=== PATIENT | male | born 1945 | race Caucasian/White ===

== ENCOUNTER → 2017-10-04 | Outpatient (CLI) | payer OTHER ==
[~2017-10-04] MED LIST: CIPR-255 PO; IBUP-103 PO; LIDO1CRE16 TOP
== END | disposition home or self-care (01) ==
LOC: C.LABSPEC 17:25
PROVIDERS: ATTEND Urology
DX: N35.9 Urethral stricture, unspecified (principal); N40.1 Benign prostatic hyperplasia with lower urinary tract symptoms; N13.9 Obstructive and reflux uropathy, unspecified

== ENCOUNTER 2019-12-09 08:44 | Observation (INO) ==
--- NOTE | 2019-11-14 16:20 | PAT Medication Instructions ---
Medication Instructions Date of Service November 14, 2019 Home Medications Advair 1 dose INHALATION UD aspirin [Aspir-81] 81 mg PO DAILY atorvastatin 20 mg PO QDL ibuprofen [Advil] 200 mg PO UD PRN lisinopril 5 mg PO QDL tamsulosin 0.4 mg PO HS ASK your surgeon for instructions aspirin [Aspir-81] 81 mg PO DAILY ibuprofen [Advil] 200 mg PO UD PRN DO NOT take the morning of surgery lisinopril 5 mg PO QDL Take morning of surgery With a small sip of water, OTHERWISE NOTHING TO EAT OR DRINK AFTER MIDNIGHT: Advair 1 dose INHALATION UD atorvastatin 20 mg PO QDL Take evening before surgery tamsulosin 0.4 mg PO HS Other Notes If you have any questions please call us at [phone] or [phone] or [phone] or [phone]
--- NOTE | 2019-11-15 08:50 | Anesthesiology Consultation ---
Date of Service November 15, 2019 Assessment & Plan (1) Encounter for pre-operative examination: Chart Review Chart Review: Acceptable Risk for Surgery (pending pre op labs) and Patient seen in Pre Admission Testing Teaching & Discussion Instructed NPO after midnight before surgery, except medications with 15 cc of water. Medication instructions provided according to the PAT guidelines. History Surgery Operation Date: 12/09/19 07:15 Proposed Procedures p Transurethral Resection Prostate - Juan Jose Sims MD Height/Weight Height: 5 ft 11 in Weight: 74.6 kg Allergies Allergy/AdvReac Type Severity Reaction Status Date / Time No Known Allergies Allergy Mild Verified 11/08/19 13:32 Medications Home Medications Medication Instructions Recorded Confirmed Last Taken Advair 1 dose INHALATION UD 11/08/19 11/08/19 Unknown aspirin [Aspir-81] 81 mg PO DAILY 11/08/19 11/08/19 Unknown atorvastatin 20 mg PO QDL 11/08/19 11/08/19 Unknown ibuprofen [Advil] 200 mg PO UD PRN 11/08/19 11/08/19 Unknown lisinopril 5 mg PO QDL 11/08/19 11/08/19 Unknown tamsulosin 0.4 mg PO HS 11/08/19 11/08/19 Unknown Past Medical History Medical History Emphysema lung Does not use inhaler. Hyperlipidemia Hypertension Prostate enlargement SOB (shortness of breath) on exertion stable Urinary problem Exercise / Class Metabolic Activity II 4-5 Yardwork/Stairs/Walk up hill (DENIES CP OR SOB WITH 1 FOS OR YARDWORK) Past Family History Family History Brother Family history of diabetes mellitus Brother Family history of diabetes mellitus Brother Family history of diabetes mellitus Brother Family history of diabetes mellitus Brother Family history of diabetes mellitus Other Family history of colon cancer in mother Past Surgical History Surgical History History of colonoscopy History of urologic surgery Past Anesthesia History No Hx of Anesthesia Complications DAUGHTER - REDNESS AND ITCHY AFTER BREAST LUMPECTOMY - PT NOT SURE DETAILS, UNSURE IF R/T ANESTHESIA History of PONV No Hx of PONV and No Hx of Motion Sickness Social History Smoking Status: Current every day smoker tobacco type: cigarettes Smoking cigarettes per day: 1PPD/ADVISED NPO Do You Dip or Chew Tobacco: No Hx Alcohol Use: No Hx Substance Use: No substance use type: does not use Review of Systems Pt denies any recent chest pain, shortness of breath, palpitations, cough, fever or URI. Physical Exam Vital Signs BP: 113/69 P: 68bpm SPO2: 94% RA T: 97.8 F R: 20 ENMT Mouth: + edentulous Thyromental Distance: > or= 3.5 Finger Breadths (4) Mallampati Class: II Neck normal visual inspection; neck extension not limited Respiratory normal respiratory effort Auscultation: + rhonchi (soft insp and exp B/L -- pt denies symptoms, has emphysema) Cardiovascular Rate/Rhythm: regular rate and regular rhythm Heart Sounds: no murmur Vessels: no carotid bruit Extremities: no edema Testing Electrocardiogram Date: 10/17/19 Findings: + SB @ (54bpm) Otherwise normal EKG. Stress Test Date: 05/29/17 Type: DSE Resting EF: 60% DSE is negative for inducible ischemia. LV cavity size is normal. Mild concentric LVH. Grade I diastolic dysfunction. Other Testing Chest CT 08/26/19 Mild emphysema with scattered bilateral lung nodules measuring up to 5 mm.
[2019-11-15 11:10] LABS: Basophils # (auto) 0.03 K/uL (0-0.2); Basophils % (auto) 0.5 %; Eosinophils # (auto) 0.38 K/uL (0-0.5); Eosinophils % (auto) 6.8 %; Hematocrit (blood only) 44.3 % (42-52); Hemoglobin 15.3 g/dL (14.0-18.0); Immature Granulocytes # (auto) 0.02 K/uL (0.00-0.02); Immature Granulocytes % (auto) 0.4 %; Lymphocytes # (auto) 1.45 K/uL (1.2-3.4); Lymphocytes % (auto) 25.8 %; Mean Corpuscular Hemoglobin 29.7 pg (25-34); Mean Corpuscular Hgb Conc 34.5 g/dL (32-36); Mean Corpuscular Volume 85.9 fL (80-100); Mean Platelet Volume 10.6 fL (7.4-10.4); Monocytes # (auto) 0.62 K/uL (0.11-0.59); Neutrophils # (auto) 3.12 K/uL (1.4-6.5); Neutrophils % (auto) 55.5 %; Platelet Count 185 K/uL (130-400); RDW Coefficient of Variation 13.8 % (11.5-14.5); RDW Standard Deviation 43.1 fL (36.4-46.3); Red Blood Count 5.16 M/uL (4.7-6.1); White Blood Count 5.62 K/uL (4.8-10.8)
[2019-11-15 11:18] LABS: BUN Creatinine Ratio 17.4 (10-20); Calcium 8.9 mg/dl (8.5-10.1); Creatinine Clr Calc Pharmacy 69.4 ml/min; Est GFR (African American) 88.1; Est GFR (Non-African American) 76.1; Potassium 4.1 mmol/L (3.5-5.1)
[2019-11-16 11:20] LABS: Appearance Urine Clear (Clear); Bilirubin Urine Negative (Negative); Blood Urine Negative (Negative); Color Urine Yellow; Glucose Urine UA Negative (Negative); Ketones Urine Negative (Negative); Leukocyte Esterase Urine Negative (Negative); Nitrite Urine Negative (Negative); Protein Urine Negative (Negative); Specific Gravity Urine 1.015 (1.000-1.030); Urobilinogen Urine Negative (Negative)
[~2019-12-09 08:44] MED LIST changes: -CIPR-255 PO; +CIPROFLOXACIN 400 MG/200 ML BAG IV SCH; -IBUP-103 PO; -LIDO1CRE16 TOP; +LR 15ML/HR IV SCH
--- NOTE | 2019-12-09 10:50 | History & Physical Bridge Note ---
Date of Service December 09, 2019 History & Physical Bridge Note I have examined the patient, reviewed the History & Physical and in the interval since the performance of the History & Physical I have noted the following changes of clinical significance: no changes noted
[2019-12-09] MEDS ORDERED: LIDOCAINE HCL 2% 2 ML VIAL/AMP(20MG/ML) INFIL ONE (10:57)
[2019-12-09] MEDS ORDERED: PROPOFOL IV EMULSION 10 MG/ML 20 ML VIAL IV ONE (10:57)
[2019-12-09] MEDS ORDERED: ONDANSETRON INJ 2 MG/ML 2 ML VIAL ONE (10:57)
[2019-12-09] MEDS ORDERED: fentaNYL citrate 100 MCG/2 ML VIAL ONE (10:57)
[2019-12-09] MEDS ORDERED: ePHEDrine sulfate 50 MG/ML AMP IV PRN (11:06)
[2019-12-09] MEDS ORDERED: ONDANSETRON INJ 2 MG/ML 2 ML VIAL IV PRN (11:06)
[2019-12-09] MEDS ORDERED: ATROPINE SULFATE 0.1 MG/ML 10ML SYR IV PRN (11:06)
[2019-12-09] MEDS ORDERED: HYDROmorphone INJ 2 MG/ML SYR/VIAL IV PRN (11:06)
[2019-12-09] MEDS ORDERED: fentaNYL citrate 100 MCG/2 ML VIAL IV PRN (11:06)
--- NOTE | 2019-12-09 12:21 | Operative Report ---
PG Post Operative Report Pre & Post Diagnosis Operation Date: 12/09/19 10:45 Pre-Op Diagnosis: BENIGN PROSTATIC HYPERPLASIA, PROSTATIC OBSTRUCTION Post-Op Diagnosis: BENIGN PROSTATIC HYPERPLASIA, PROSTATIC OBSTRUCTION I identified the patient and participated in the time-out.: Yes Procedure Operation Date: 12/09/19 10:45 Actual Procedures p Meatal Dilitation; Transurethral Resection Prostate(Not Applicable) - Juan Jose Sims MD Surgeon Chris Sims MD Senior Director Creative Services none Estimated Blood Loss 5 Findings Consistent with Post-Op Diagnosis Specimens none Description of Procedure The patient was identified in the preopertive holding area, appropriate informed consents were reviewed and completed and the patient was transferred to the operative suite. Upon arrival, appropriate antibiotics and anesthesia were administered and the patient was placed in dorsal lithotomy position and prepped and draped in sterile fashion. To begin the case I was unable to pass a cystoscope per urethra secondary to a meatal stenosis. I subsequently performed a meatal dilation from 12 Wallisian to 30 Wallisian utilizing meatal sounds. I was then able to bypass the stenotic area with a 27 Wallisian resectoscope and visual obturator. Inspection revealed no other evidence of stricture disease. 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 Inspection of the prostate revealed lateral lobe hypertrophy and a moderately elevated bladder neck. Bladder was moderately trabeculated without any mucosal disease. Ureteral orifices were in orthotopic position. Following my inspection exchanged the visual obturator for resecting element using a button electrode. I began by incising the bladder neck at 5 and 7:00 and then resecting the intervening tissue. I subsequently resected the left and right lateral lobes before trimming the apical tissues. At the conclusion of the case there was an open prostatic urethra with excellent hemostasis. I left the bladder full and I withdrew the scope. I then placed a 22 Wallisian Elizondo catheter without difficulty. He was extubated and taken to the PACU in stable condition. There were no complications. I attest to the content of the Intraoperative Record and any orders documented therein. Any exceptions are noted below.
[2019-12-09] MEDS: NICOTINE 21 MG/24 HR TDSY TD SCH (12:26)
--- NOTE | 2019-12-09 13:14 | Anesthesiology Progress Note ---
Date of Service December 09, 2019 Anesthesia Post Procedure Vital Signs Vital Signs: Temp Pulse Pulse Resp BP BP Pulse Ox 12/09/19 13:00 36.8 C 45 L 17 131/72 96 12/09/19 12:50 36.8 C 48 L 18 142/80 H 96 12/09/19 12:40 52 L 16 126/74 95 12/09/19 12:30 55 L 18 135/70 95 12/09/19 12:20 36.8 C 53 L 17 112/64 95 12/09/19 12:10 51 L 17 123/66 96 12/09/19 12:00 51 L 13 123/70 100 12/09/19 11:50 36.7 C 48 L 12 116/62 99 12/09/19 09:24 36.5 C 55 L 18 134/78 98 Transfer of Care Handoff Completed per policy Notes Mental Status: alert / awake / arousable and participated in evaluation Patient Amnestic to Procedure: Yes Nausea / Vomiting: adequately controlled Pain: adequately controlled Airway Patency, RR, SpO2: stable & adequate BP & HR: stable & adequate Hydration State: stable & adequate Anesthetic Complications: no major complications apparent
[2019-12-09] MEDS ORDERED: HYDROCODONE/ACETAMOPHEN 5/325MG TAB PO PRN (13:29)
[2019-12-09] MEDS ORDERED: ACETAMINOPHEN 325 MG TAB PO PRN (13:29)
[2019-12-09] MEDS ORDERED: ADVAIR INH SCH (13:29)
[2019-12-09] MEDS: D5W AND 1/2NSS 1,000 ML IV SCH (13:54)
[2019-12-09] MEDS ORDERED: IBUPROFEN 200 MG TAB PO PRN (14:00)
[2019-12-09] MEDS: ATORVASTATIN 20 MG TAB PO SCH (14:27)
[2019-12-09] MEDS: lisinopriL 5 MG TAB PO SCH (14:27)
[2019-12-09] MEDS ORDERED: TAMSULOSIN HCL 0.4 MG CAP PO SCH (21:00)
[2019-12-09] MEDS: CIPROFLOXACIN 400 MG/200 ML BAG IV SCH (23:28)
[2019-12-09] MEDS ORDERED: COUGH DROP (SUGAR FREE) LOZ 24 LOZ/1 BOX BUCCAL ONE (23:31)
[2019-12-10] MEDS: D5W AND 1/2NSS 1,000 ML IV SCH ×2 (02:09→04:37)
--- NOTE | 2019-12-10 07:51 | Urology Progress Note ---
Date of Service December 10, 2019 Assessment & Plan (1) BPH loc w urin obs/LUTS: woodard out this am home after d/c Subjective no issues overnight urine clear ambulating no pain tolerating diet Physical Exam Physical Exam: urine clear Constitutional: well developed and well nourished Respiratory: no respiratory distress Cardiovascular: Extremities: no pedal edema Gastrointestinal (Abdomen): Inspection/Auscultation: abdomen normal to inspection Results & Data Vital Signs (Past 12 Hours) Vital Signs Temp Pulse Resp BP Pulse Ox 12/10/19 07:18 36.7 C 55 L 16 136/76 96 12/10/19 03:41 36.8 C 71 18 138/77 96 12/09/19 23:45 36.7 C 54 L 18 121/74 96 PG Care Time/CCT Total # of Minutes Spent Total Time Spent with Patient: Total time spent is greater than 50% in coordination of care (as documented) at patient's floor/unit and/or counseling patient: Coding Level of Care Code None Diagnoses BPH loc w urin obs/LUTS N40.1
--- NOTE | 2019-12-10 07:53 | Discharge Summary ---
Date of Service December 10, 2019 Admission HPI Per Admitting Provider admitted for voiding dysfunction Principal Diagnosis BPH Discharge Data Allergies Allergy/AdvReac Type Severity Reaction Status Date / Time No Known Allergies Allergy Mild Verified 12/09/19 09:14 Procedures Performed Operation Date: 12/09/19 10:45 Actual Procedures p Meatal Dilitation; Transurethral Resection Prostate(Not Applicable) - Juan Jose Sims MD Hospital Course (1) BPH loc w urin obs/LUTS: uneventful meatal dilation and TURP recovery without issue voided on POD #1 - d/c home Total Time Total Time Spent Total Time Spent (In Minutes): 15 Total Time Includes: Examination of the Patient and Discharge Planning Discharge Plan Discharge Items Patient Disposition: Home - Self-Care Reason For Visit: BENIGN PROSTATIC HYPERPLASIA, PROSTATIC OBSTRUCTIO Discharge Diagnosis: BPH Activity: Resume your previous activity Lifting: Gradually increase as tolerated Bathing: No limitations Sexual Activity: When tolerated Exercise/Sports: Gradually increase as tolerated Driving/Machine Use: No limitations Non-emergency contact: Urologist Call non-emergency contact if: you have any medication questions, your pain is concerning for you, you have a fever and your temperature is above 101.5 Follow-up/Referrals: Carmela Llanos DO [Primary Care Provider] - Diet: Regular Addtl Attending Provider Instructions: Please take all medications as prescribed and keep follow-ups as scheduled. Please call our office at [phone] with any questions, concerns or need to reschedule appointments for any reason. We are happy to assist you. While catheter is in place, please wash with warm soapy water and a fresh washcloth twice a day with mild bar soap (Dove, Dial, etc.). Your nursing visit appointment to have your catheter removed should already be made, if you have any question regarding this, please call our office. Complete antibiotics as prescribed, if indicated. It is okay to take AZO (available over the counter) as needed for a few days to relieve burning with urination. This may cause your urine or feces to turn an orangish-color. This is expected. The only exception is if you have been prescribed Pyridium (phenazopyridine), this is the same medication and should not take AZO be taken in addition to prescription version. Please do not drive, drink alcohol or operate machinery while taking prescription pain medication. We recommend continuing a stool softener (i.e. Colace) to prevent constipation/straining for at least two weeks after your procedure. Some blood is to be expected in your urine as you heal, you may even see recurrences of blood in your urine for up to 4-6 months after your procedure. Drink plenty of fluids, avoid sexual or strenuous exercise and do not lift >25 pounds until your follow-up. Call [facility] [place] [facility] at [phone] promptly if you experience: Fever of 101F or greater Pain thats not controlled with medicine Trouble urinating or inability to urinate Dark, bloody urine for more than 12 hours Pending Studies at Discharge: No Stand-Alone Forms: My [facility] Protalex, Smoking Cessation Medications and DC Order Prescriptions: Continued atorvastatin 20 mg Tablet 20 mg PO QDL RF: 0 tamsulosin 0.4 mg Capsule 0.4 mg PO HS RF: 0 lisinopril 5 mg Tablet 5 mg PO QDL RF: 0 aspirin [Aspir-81] 81 mg Tablet,Delayed Release (Dr/Ec) 81 mg PO DAILY RF: 0 ibuprofen [Advil] 200 mg Tablet 200 mg PO UD PRN (Reason: Pain) RF: 0 Advair 1 dose inhalation UD RF: 0 Discharge Orders: Discharge Order (Routine); Ordered 12/10/19 Ordered By: Juan Jose Sims Admission Data Admit Date/Time: 12/09/19 12:16 Attending Provider: Juan Jose Sims Admit Provider: Juan Jose Sims Primary Care Provider: Carmela Llanos Coding Level of Care Code D/C Day Management <30 mins Diagnoses BPH loc w urin obs/LUTS N40.1
--- NOTE | 2019-12-10 07:59 | Anesthesiology Progress Note ---
Date of Service December 10, 2019 Anesthesia Post Procedure Vital Signs Vital Signs: Temp Pulse Pulse Resp BP BP Pulse Ox 12/10/19 07:50 36.7 C 55 L 16 136/76 96 12/10/19 07:18 36.7 C 55 L 16 136/76 96 12/10/19 03:41 36.8 C 71 18 138/77 96 12/09/19 23:45 36.7 C 54 L 18 121/74 96 12/09/19 16:21 36.5 C 51 L 16 128/69 95 12/09/19 15:27 36.4 C L 52 L 16 143/73 H 96 12/09/19 14:15 36.4 C L 47 L 16 155/73 H 95 12/09/19 13:45 36.4 C L 51 L 18 145/82 H 96 12/09/19 13:15 36.4 C L 50 L 18 144/84 H 94 12/09/19 13:00 36.8 C 45 L 17 131/72 96 12/09/19 12:50 36.8 C 48 L 18 142/80 H 96 12/09/19 12:40 52 L 16 126/74 95 12/09/19 12:30 55 L 18 135/70 95 12/09/19 12:20 36.8 C 53 L 17 112/64 95 12/09/19 12:10 51 L 17 123/66 96 12/09/19 12:00 51 L 13 123/70 100 12/09/19 11:50 36.7 C 48 L 12 116/62 99 12/09/19 09:24 36.5 C 55 L 18 134/78 98 Pulse Ox 12/10/19 07:50 12/10/19 07:18 12/10/19 03:41 12/09/19 23:45 12/09/19 16:21 12/09/19 15:27 12/09/19 14:15 12/09/19 13:45 12/09/19 13:15 94 12/09/19 13:00 12/09/19 12:50 12/09/19 12:40 12/09/19 12:30 12/09/19 12:20 12/09/19 12:10 12/09/19 12:00 12/09/19 11:50 12/09/19 09:24 Notes Mental Status: alert / awake / arousable and participated in evaluation Nausea / Vomiting: adequately controlled Pain: adequately controlled Airway Patency, RR, SpO2: stable & adequate BP & HR: stable & adequate Hydration State: stable & adequate
[2019-12-10] MEDS: NICOTINE 21 MG/24 HR TDSY TD SCH (08:35)
[2019-12-10] MEDS ORDERED: ASPIRIN 81 MG ECTAB PO SCH (09:00)
[2019-12-10] MEDS: CIPROFLOXACIN 400 MG/200 ML BAG IV SCH (09:08)
[2019-12-10] MEDS: ATORVASTATIN 20 MG TAB PO SCH (11:03)
[2019-12-10] MEDS: lisinopriL 5 MG TAB PO SCH (11:03)
== END 2019-12-10 11:49 | disposition home or self-care (01) ==
LOC: ASU 08:44 → 3N 08:44

== ENCOUNTER 2024-12-04 20:29 | Observation (INO) ==
[2024-12-04 21:18] LABS: Hematocrit (blood only) 45.3 % (42.0-52.0); Hemoglobin 15.7 g/dl (14.0-18.0); Mean Corpuscular Hemoglobin 28.2 pg (25.0-34.0); Mean Corpuscular Hgb Conc 34.7 g/dL (32.0-36.0); Mean Corpuscular Volume 81.3 fL (80.0-100.0); Mean Platelet Volume 9.5 fL (9.4-12.4); Platelet Count 239 K/uL (130-400); RDW Coefficient of Variation 14.4 % (11.5-14.5); RDW Standard Deviation 42.6 fL (36.4-46.3); Red Blood Count 5.57 M/uL (4.70-6.10); White Blood Count 8.23 K/ul (4.8-10.8)
[2024-12-04 21:36] LABS: Alanine Aminotransferase 19 U/L (7-52); Albumin Globulin Ratio 1.9 (0.9-2); Albumin Level 3.7 gm/dl (3.4-5.0); Alkaline Phosphatase 77 U/L (34-104); Anion Gap 9 (3-11); Aspartate Aminotransferase 18 U/L (13-39); Bilirubin,Total 0.9 mg/dl (0.2-1.0); Blood Urea Nitrogen 26 mg/dl (6-23); Calcium 7.8 mg/dl (8.6-10.3); Carbon Dioxide 25 mmol/L (21-32); Chloride 100 mmol/L (98-107); Glucose 146 mg/dl (70-99(Fasting)); Potassium 3.9 mmol/L (3.5-5.1); Sodium 134 mmol/L (136-145); Total Protein 5.7 gm/dl (6.0-8.3)
[2024-12-04 21:41] LABS: INR 1.1 (0.9-1.1); Partial Thromboplastin Time 27 Seconds (21-31); Prothrombin Time 11.9 Seconds (9.0-12.0)
[2024-12-04 21:43] LABS: Troponin I High Sensitivity 29.7 pg/ml (0-20)
[2024-12-04 21:54] LABS: Influenza A virus by PCR Negative (Neg); Influenza B virus by PCR Negative (Neg); RSV by PCR Negative (Neg); SARS CoV2 RNA(COVID-19) Ceph NEGATIVE (Negative)
[2024-12-04 22:00] LABS: Basophils % (auto) 1.2 %; Eosinophils # (auto) 0.08 K/uL (0.00-0.50); Immature Granulocytes # (auto) 0.79 K/uL (0.01-0.20); Immature Granulocytes % (auto) 9.6 %; Lymphocytes # (auto) 1.11 K/uL (1.20-3.40); Lymphocytes % (auto) 13.5 %; Monocytes # (auto) 1.77 K/uL (0.11-0.59); Monocytes % (auto) 21.5 %; Neutrophils # (auto) 4.38 K/uL (1.40-6.50); Neutrophils % (auto) 53.2 %
--- NOTE | 2024-12-04 22:01 | Emergency Department Note ---
Impression & Plan Chest pain, SOB (shortness of breath), Elevated troponin, Nausea, Decreased appetite ED Provider Note CHIEF COMPLAINT: Nausea and vomiting HISTORY OF PRESENTING ILLNESS: This 79-year-old male patient presents to the emergency department with his daughters for evaluation of nausea and SOB that started 1 month ago. The patient was seen at his PCP on 10/31/24 and diagnosed with bronchitis and prescribed Augmentin and Prednisone. The patient was not improving and saw his PCP again on 11/26/14 and treated with Doxycycline and Robitussin AC. However, he has not had any improvement with the antibiotics or steroids. He is still coughing and has a lot of nausea, vomiting, and decreased appetite. Sometimes feels like his chest feels tight and sometimes SOB. The patient has also had a headache and intermittent dizziness. He states that the headache and dizziness is mild and intermittent. Was vomiting yesterday, but not today. He is now complaining of pain in the right ear. Denies any fevers. He has not had any imaging or testing as an outpatient for his symptoms. He is not on any blood thinners. He has a history of COPD, but only uses inhalers intermittently. REVIEW OF SYSTEMS: See HPI for pertinent positives and pertinent negatives. ALLERGIES: NKDA MEDICATIONS: See below PAST MEDICAL HISTORY: See below PHYSICAL EXAM: VITALS: Vitals are noted on the nurse's note and reviewed by myself. GENERAL: No acute distress, non-diaphoretic. SKIN: Capillary reflex less than 2 seconds. HEAD: No scalp tenderness. No step-offs felt. EARS: Bilateral external auditory canals clear. Bilateral tympanic membranes pearly aldrich without erythema or effusion. No hemotympanum. No toure sign. No mastoid tenderness. EYES: Pupils equal round and reactive to light and accommodation. Conjunctivae without injection, sclerae without icterus. Extraocular movements intact without pain. No nystagmus. NOSE: Patent, turbinates without inflammation or discharge. No sinus tenderness. No septal hematoma or bleeding. FACE: No facial bone tenderness. Full range of motion of the jaw without tenderness. No facial droop. MOUTH: Mucous membranes moist. Uvula midline. Airway patent. Tongue does not deviate. NECK: Supple without nuchal rigidity. Cervical spine is nontender. Full range of motion of the neck without tenderness and normal strength. HEART: Regular rate and rhythm without murmurs gallops or rubs. LUNGS: Clear to auscultation bilaterally with a few scattered wheezes, but no rales or rhonchi. No retractions or accessory muscle use. No chest wall tenderness. ABDOMEN: Positive bowel sounds x 4. Normal tympanic percussion. Soft, nontender to palpation. No masses or hepatosplenomegaly. No guarding or rebound tenderness. No focal RLQ or LLQ tenderness. MUSCULOSKELETAL: No tenderness of the thoracic or lumbar spine or paraspinal muscles. Strength 5/5 and equal bilaterally in the upper and lower extremities. Peripheral pulses 2+ and equal in the bilateral upper and lower extremities. NEURO: Patient was alert and oriented to person place and time. Normal mental status exam. Normal sensation to light and sharp touch. Negative Romberg and pronator drift. Cerebellar function intact. No focal neurological deficits. DIFFERENTIAL DIAGNOSIS: Differential diagnosis includes angina, CA, pericarditis, myocarditis, aortic dissection, pleurisy, pneumothorax, PE, pneumonia, pneumomediastinum, esophagitis, esophageal spasm, GERD, perforated esophagus, perforated duodenal/gastric ulcer, pancreatitis, cholecystitis, costochondritis, musculoskeletal, bronchitis, URI, viral syndrome, RSV, Influenza, COVID, strep throat, pharyngitis/tonsillitis, mononucleosis, retropharyngeal abscess, peritonsillar abscess, otitis media, otitis externa, sinusitis, bronchitis, pneumonia, gastroenteritis, food borne illness, infections, appendicitis, diverticulitis, inflammatory bowel disease, obstruction, GI bleed, biliary pathology, volvulus, acute intracranial abnormality, as well as other pathologies. ED COURSE AND MEDICAL DECISION MAKING: HISTORY FROM INDEPENDENT HISTORIAN: Additional history was obtained from the patient's daughters. MEDICATIONS GIVEN: DuoNeb treatment. Aspirin 324 mg p.o. Zofran 4 mg IV. 500 ml normal saline solution bolus. MONITOR: Continuous pig iron loader: Order was placed for continuous pig iron loader. Patient was placed on the pig iron loader and continuous pulse ox. Patient was noted to be in normal sinus rhythm at an initial rate of 80 bpm per my interpretation. EKG: EKG was interpreted by myself as normal sinus rhythm at 77 bpm with no acute ST or T wave changes and no significant change from his previous EKG. INTERPRETATION OF LABS: I interpreted the labs with full lab results as below in the lab section of this note. Laboratory results pertinent to the emergent complaint are discussed in the MDM section below. The patient was advised to follow up with their PCP and/or specialist(s) for further outpatient monitoring and management of any abnormal results. INTERPRETATION OF IMAGING: Imaging studies were interpreted by myself and read by radiology as per the imaging section of this note. The patient was advised to follow up with their PCP and/or specialist(s) for further outpatient management of any non-emergent abnormal findings. Chest x-ray negative for acute cardiopulmonary etiology. CT scan of the head without contrast shows no evidence of acute intracranial hemorrhage, gross territorial infarction, or mass effect. 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 Low-attenuation areas seen in both cerebellar hemisphere more on the left side which are likely artifactual. If clinically required, MRI can be considered. Age-appropriate volume loss in the brain parenchyma and bilateral periventricular deep white matter ischemic changes. Hyper pneumatized sphenoid sinus with nonvisualization of the internal septum. CTA of the chest with IV contrast showed no evidence for PE, pneumonia, or other acute cardiopulmonary etiology. Soft tissue density nodule in the left lower lobe measuring 7 mm in size. 6-month follow-up recommended. CT scan of the abdomen pelvis with IV contrast showed no acute abnormality in the abdomen or pelvis. There is uncomplicated colonic diverticulosis. Left adrenal adenoma. 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 EXTERNAL RECORDS REVIEWED: I reviewed the patient's outpatient PCP office visit notes as supplied by the patient's daughters. CONSULTATIONS: On-call hospitalist MDM SUMMARY: The patient was seen during a time of extreme volume and extreme acuity. Nursing triage protocols were initiated with IV lock, labs, and/or imaging studies conducted by protocol in the triage area. The patient was initially evaluated in a sub-waiting room and then re-evaluated once they were taken back to an exam room. The patient has had nausea, chest pain, shortness of breath, and cough for the past month. He has been treated with Augmentin, prednisone, doxycycline, and Robitussin without improvement of his symptoms. He continues with the nausea and intermittent vomiting. Also having intermittent headaches and intermittent dizziness. The chest pain and shortness of breath is persisting as well. He has a history of COPD and uses his inhalers intermittently. Due to the patient's prolonged symptoms despite outpatient treatment, a further workup was performed in the ER. CBC without leukocytosis, anemia, or thrombocytopenia. Coags were normal. Sodium slightly low at 134, BUN elevated at 26, glucose 146, and calcium 7.8, but CMP otherwise unremarkable. Magnesium normal. Lipase normal. Initial high sensitive troponin elevated at 29.7 with repeat of 31.4. EKG without STEMI or ischemic changes. Urinalysis without blood or evidence for UTI. COVID, influenza, and RSV were negative. Chest x-ray negative for acute cardiopulmonary etiology. CT scan of the head without contrast shows no evidence of acute intracranial hemorrhage, gross territorial infarction, or mass effect. 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 Low-attenuation areas seen in both cerebellar hemisphere more on the left side which are likely artifactual. If clinically required, MRI can be considered. Age-appropriate volume loss in the brain parenchyma and bilateral periventricular deep white matter ischemic changes. Hyper pneumatized sphenoid sinus with nonvisualization of the internal septum. CTA of the chest with IV contrast showed no evidence for PE, pneumonia, or other acute cardiopulmonary etiology. Soft tissue density nodule in the left lower lobe measuring 7 mm in size. 6-month follow-up recommended. CT scan of the abdomen pelvis with IV contrast showed no acute abnormality in the abdomen or pelvis. There is uncomplicated colonic diverticulosis. Left adrenal adenoma. 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 The patient has had prolonged nausea and decreased appetite with development of chest pain and shortness of breath. His high-sensitivity troponins were mildly elevated. I had a meaningful discussion about this patient with Dr. Briseno who agrees with my assessment and the treatment plan. Given his symptoms and workup findings, we feel the patient would benefit from inpatient evaluation and treatment. I spoke to the on-call hospitalist who agreed to admit the patient for further management. Please refer to their dictation for further details. The patient's care was transferred in stable condition. DIAGNOSIS: Chest pain Shortness of breath Elevated troponin Prolonged nausea and decreased appetite Past Med/Surg History Problem List (Updated 12/05/24 @ 03:29 by Mary Freedman PA-C) Decreased appetite (Acute) Nausea (Acute) Elevated troponin (Acute) SOB (shortness of breath) (Acute) Chest pain (Acute) Balanitis xerotica obliterans Urethral foreign body (Acute) Urethritis (Acute) BPH loc w urin obs/LUTS Meatal stenosis Urinary problem Encounter for pre-operative examination Medical History Emphysema lung Does not use inhaler. Hyperlipidemia Hypertension Prostate enlargement SOB (shortness of breath) on exertion stable Surgical History History of colonoscopy History of left cataract surgery JUN 15 2022 History of urologic surgery x2 Family History Brother Family history of diabetes mellitus Brother Family history of diabetes mellitus Brother Family history of diabetes mellitus Brother Family history of diabetes mellitus Brother Family history of diabetes mellitus Other Family history of colon cancer in mother Social History Smoking Status: Never smoker Cigarettes Per Day: 1PPD/ADVISED; Second Hand Exposure: No; Do You Dip or Chew Tobacco: No; Hx Alcohol Use: No Hx Substance Use: Yes Preferred Language: Slovak Communication Ability: Effective Visual Impairment: No Limitations Hearing Ability: Normal Artistic Director Required: No Beliefs That Will Affect Care: Zoroastrianism Zoroastrianism Beliefs: PRESBYTERIAN Current Living Situation: Family Current Living Situation Comment: DAUGHTER/SON IN LAW Feels Safe at Home: Yes Assistive Devices: Glasses Allergies Allergies Allergy/AdvReac Type Severity Reaction Status Date / Time No Known Allergies Allergy Mild Verified 12/04/24 22:58 Home Meds Home Medications Medication Instructions Recorded Confirmed atorvastatin 20 mg tablet 20 mg PO QPM 11/08/19 12/04/24 aspirin 81 mg tablet,delayed 81 mg PO QPM 04/07/21 12/04/24 release amlodipine 2.5 mg tablet 2.5 mg PO QPM 06/15/22 12/04/24 doxycycline hyclate 100 mg capsule 100 mg PO BID 12/04/24 12/04/24 lisinopril 20 mg tablet 20 mg PO QPM 12/04/24 12/04/24 nystatin 100,000 unit/gram topical 1 applic topical BID PRN 12/04/24 12/04/24 ointment DIRECTED triamcinolone acetonide 0.1 % 1 applic topical BID PRN 12/04/24 12/04/24 topical ointment DIRECTED Results & Data (ED) Vital Signs Vital Signs - 24 hr 12/04/24 20:42 12/04/24 22:49 12/04/24 23:17 Temperature 36.3 C L Temperature Source Temporal Artery Scan Pulse Rate 91 H 67 Pulse Rate [Apical] Pulse Rhythm [Apical] Pulse Strength [Apical] Respiratory Rate 18 18 18 Respiratory Effort / Characteristics Non-Labored Spontaneous Respiratory Depth Normal Respiratory Pattern Regular Blood Pressure 149/88 H Blood Pressure [Left Arm] 141/88 H Blood Pressure Mean 108 Blood Pressure Mean [Left Arm] 105 Blood Pressure Position Sitting Blood Pressure Position [Left Arm] Pulse Oximetry 96 99 95 Oxygen Delivery Method Room Air Room Air Sepsis Recent Fever Within 48 Hours No Sepsis New/Unexplained Change in Mental Status N/A Sepsis Action Taken by Nursing No Action Required 12/05/24 00:31 12/05/24 00:31 Temperature Temperature Source Pulse Rate Pulse Rate [Apical] 73 Pulse Rhythm [Apical] Regular Pulse Strength [Apical] Normal Respiratory Rate 16 Respiratory Effort / Characteristics Non-Labored Spontaneous Respiratory Depth Normal Respiratory Pattern Regular Blood Pressure Blood Pressure [Left Arm] 141/88 H Blood Pressure Mean Blood Pressure Mean [Left Arm] 105 Blood Pressure Position Blood Pressure Position [Left Arm] Lying Pulse Oximetry 99 Oxygen Delivery Method Room Air Room Air Sepsis Recent Fever Within 48 Hours Sepsis New/Unexplained Change in Mental Status Sepsis Action Taken by Nursing Laboratory Data 12/05/24 07:15 12/05/24 07:15 Lab Results 12/04/24 12/04/24 12/05/24 Range/Units 20:58 22:55 00:42 WBC 8.23 (4.8-10.8) K/ul RBC 5.57 (4.70-6.10) M/uL Hgb 15.7 (14.0-18.0) g/dl Hct 45.3 (42.0-52.0) % MCV 81.3 (80.0-100.0) fL MCH 28.2 (25.0-34.0) pg MCHC 34.7 (32.0-36.0) g/dL RDW Std Deviation 42.6 (36.4-46.3) fL RDW Coeff of Naheed 14.4 (11.5-14.5) % Plt Count 239 (130-400) K/uL MPV 9.5 (9.4-12.4) fL Immature Gran % (Auto) 9.6 % Neut % (Auto) 53.2 % Lymph % (Auto) 13.5 % Humphreys % (Auto) 21.5 % Eos % (Auto) 1.0 % Baso % (Auto) 1.2 % Neut # (Auto) 4.38 (1.40-6.50) K/uL Lymph # (Auto) 1.11 L (1.20-3.40) K/uL Humphreys # (Auto) 1.77 H (0.11-0.59) K/uL Eos # (Auto) 0.08 (0.00-0.50) K/uL Baso # (Auto) 0.10 (0.00-0.20) K/uL Immature Gran # (Auto) 0.79 H (0.01-0.20) K/uL PT 11.9 (9.0-12.0) Seconds INR 1.1 (0.9-1.1) APTT 27 (21-31) Seconds PTT Ratio 1.0 Sodium 134 L (136-145) mmol/L Potassium 3.9 (3.5-5.1) mmol/L Chloride 100 (98-107) mmol/L Carbon Dioxide 25 (21-32) mmol/L Anion Gap 9 (3-11) BUN 26 H (6-23) mg/dl Creatinine 1.18 (0.6-1.4) mg/dl Est Cr Clr Drug Dosing Not Reportable eGFR 62.38 BUN/Creatinine Ratio 22.0 H (10-20) Glucose 146 H (70-99(Fasting)) mg/dl Estimat Average Glucose 137 mg/dl Hemoglobin A1c 6.4 H (4.5-5.6) % Calcium 7.8 L (8.6-10.3) mg/dl Magnesium 1.9 (1.7-2.4) mg/dl Total Bilirubin 0.9 (0.2-1.0) mg/dl AST 18 (13-39) U/L ALT 19 (7-52) U/L Alkaline Phosphatase 77 (34-104) U/L Troponin I High Sens 29.7 H 31.4 H (0-20) pg/ml Total Protein 5.7 L (6.0-8.3) gm/dl Albumin 3.7 (3.4-5.0) gm/dl Globulin 2.0 L (2.5-4.0) gm/dl Albumin/Globulin Ratio 1.9 (0.9-2) Lipase 9 L (11-82) U/L Urine Color Yellow Urine Appearance Clear (Clear) Urine pH 5.5 (4.5-7.5) Ur Specific [place] 1.037 H (1.000-1.030) Urine Protein Negative (Negative) Urine Glucose (UA) Negative (Negative) Urine Ketones Negative (Negative) Urine Blood Negative (Negative) Urine Nitrite Negative (Negative) Urine Bilirubin Negative (Negative) Urine Urobilinogen Negative (Negative) Ur Leukocyte Esterase Negative (Negative) SARS-CoV-2 (PCR) NEGATIVE (Negative) Influenza Type A (PCR) Negative (Neg) Influenza Type B (PCR) Negative (Neg) RSV (RT-PCR) Negative (Neg) Administered Medications Albuterol (Albut/Ipratrop 3mg/0.5mg Neb 3 Ml Vial) 3 ml NEB Q6R TORIE; Protocol Stop: 01/04/25 06:59 Last Admin: 12/05/24 07:04 Dose: 3 ml Documented By: YOLANDA Carbamide Peroxide (Carbamide Peroxide 6.5% 15 Ml Btl) 5 drops OTR BID TORIE Stop: 12/09/24 02:24 Last Admin: 12/05/24 02:53 Dose: 5 drops Documented By: TESS Potassium Chloride/Sodium Chloride (Normal Saline W/20 Meq Kcl) 20 meq in 1,000 mls @ 60 mls/hr IV .[id number] ONE Stop: 12/05/24 19:02 Last Admin: 12/05/24 03:44 Dose: 60 mls/hr Documented By: NESTOR Discontinued Medications Albuterol (Albut/Ipratrop 3mg/0.5mg Neb 3 Ml Vial) 3 ml NEB NOW STA; Protocol Stop: 12/04/24 22:14 Last Admin: 12/04/24 22:42 Dose: 3 ml Documented By: FELIZ Aspirin (Aspirin Chew 324 Mg) 324 mg PO NOW STA Stop: 12/04/24 22:14 Last Admin: 12/04/24 22:41 Dose: 324 mg Documented By: FELIZ Sodium Chloride (Nss) 500 mls @ 999 mls/hr IV .Q31M ONE Stop: 12/04/24 22:43 Last Infusion: 12/05/24 01:16 Dose: Infused Documented By: Admin: 12/04/24 22:42 Dose: 999 mls/hr Documented By: FELIZ Famotidine (Pepcid 20mg Iv Push) 20 mg in 5 mls @ 2.5 mls/min IV NOW STA Stop: 12/05/24 02:11 Last Admin: 12/05/24 02:49 Dose: 2.5 mls/min Documented By: TESS Promethazine HCl (Phenergan) 6.25 mg in 50.25 mls @ 201 mls/hr IV NOW STA Stop: 12/05/24 02:26 Last Infusion: 12/05/24 03:10 Dose: Infused Documented By: Admin: 12/05/24 02:51 Dose: 201 mls/hr Documented By: TESS Magnesium Sulfate/Dextrose (Magnesium Sulfate / D5w) 1 gm in 100 mls @ 50 mls/hr IV ONE ONE Stop: 12/05/24 04:21 Last Infusion: 12/05/24 06:00 Dose: Infused Documented By: Admin: 12/05/24 03:44 Dose: 50 mls/hr Documented By: NESTOR Ioversol (Optiray 320 125ml) 119 ml IV ONCE ONE Stop: 12/04/24 23:56 Last Admin: 12/04/24 23:56 Dose: 119 ml Documented By: SONU Methylprednisolone (Methylprednisolone 125 Mg/2 Ml Vial) 20 mg IV NOW STA Stop: 12/05/24 02:12 Last Admin: 12/05/24 02:50 Dose: 20 mg Documented By: TESS Ondansetron HCl (Ondansetron Inj 2 Mg/Ml 2 Ml Vial) 4 mg IV NOW STA Stop: 12/04/24 22:14 Last Admin: 12/04/24 22:42 Dose: 4 mg Documented By: FELIZ Imaging Data Radiologist's Impression: Chest X-Ray 12/04/24 20:48 Exam(s): XR CXR 1 VIEW EXAM: XR Chest, 1 View CLINICAL HISTORY: Chest pain, nonspecific. TECHNIQUE: Frontal view of the chest. COMPARISON: Chest 2 views 10/05/2016 FINDINGS: Lungs: The lungs are stable in appearance without focal airspace consolidation. The pulmonary vasculature is unremarkable. Pleural space: Unremarkable. No pneumothorax. No large pleural effusion. Heart: Unremarkable. No cardiomegaly. Mediastinum: The mediastinal contours are stable and unremarkable. The trachea is midline. Bones/joints: Unremarkable. No acute fracture. IMPRESSION: No acute cardiopulmonary process or significant alteration from the prior examination. Electronically signed by: Chris Espinoza MD 12/04/24 23:25 PM Abdomen/Pelvis CT 12/04/24 22:13 EXAM: CT abd pelvis IV con only CLINICAL HISTORY: abd pain n/v/d TECHNIQUE: CT of the abdomen and pelvis was performed, with the following protocol: axial images, and reconstructed coronal and sagittal images. 119 cc opti 320 intravenous contrast was administered. One of the following dose reduction techniques was utilized for this exam: Automated exposure control, adjustment of the mA and/or kV according to patient size, and use of iterative reconstruction. COMPARISON: None. FINDINGS: Sections of lower thorax show diffuse centrilobular emphysematous changes. A 5 mm parenchymal nodule in superior segment of left lower lobe. Few focal areas of pleural nodularity seen in visualized lower lungs. Minimal subpleural basilar atelectatic changes. Abdomen: Liver: Normal in size, and density. No focal lesions, cysts, or masses were identified. Gallbladder and Biliary System: The gallbladder is normal in size and shape. No wall thickening, pericholecystic fluid, or gallstones were identified. Pancreas: Pancreatic head, body, and tail are visualized and appear normal in size and density. No pancreatic masses or calcifications were noted. Spleen: Normal in size, shape, and density. No splenic lesions or masses were identified. Kidneys and Adrenal Glands: Both kidneys are normal in size, shape, and position. No renal calculi or hydronephrosis. A 20 x 10 mm hypodense lesion along the medial limb of left adrenal gland, possibly adenoma. Right adrenal gland appears unremarkable. Pelvis: Urinary Bladder: Normal in contour and wall thickness. Prostate appears unremarkable. Peritoneal and Retroperitoneal Structures: No free fluid or abnormal fluid collections were identified within the abdomen or pelvis. Atherosclerotic aorto-iliac calcifications noted. 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 Bowel: Uncomplicated colonic diverticulosis noted. The visualized bowel loops are normal in caliber and appearance. No evidence of bowel obstruction or wall thickening. Appendix appears normal in caliber without CT evidence of acute appendicitis. Tiny 1-2 mm appendicolith suspected. Bones and Soft Tissues: Degenerative changes in lumbar spine. IMPRESSION: 1. No acute abnormality detected in CT abdomen and pelvis 2. Uncomplicated colonic diverticulosis 3. Left adrenal adenoma 4. 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 Electronically signed by Kaden Matthews 12-05-2024 01:08 AM Chest CTA 12/04/24 22:13 EXAM: CT angio chest PE protocol CLINICAL HISTORY: pe 119 cc opti 320 TECHNIQUE: Contiguous axial images were obtained from the neck base through the upper abdomen following intravenous administration of iodinated contrast material. Angiographic images were processed, 3D MIP images were acquired for interpretation. If IV contrast material had not been administered, the likelihood of detecting abnormalities relevant to the patient's condition would have been substantially decreased. Coronal and sagittal 3-D MIPs were likewise performed and indicated to increase the sensitivity of detectin diffuse clinically relevant pathology. CT scan was performed according to ALARA (as low as reasonably achievable). COMPARISON: none FINDINGS: Adequate contrast bolus without evidence of pulmonary embolism. The central airways are patent. A small 3mm subpleural nodule in left lower lobe- not significant. Soft tissue density nodule in left lower lobe measuring 7 mm in size. Emphysematous changes seen in both lungs. Rest of the lungs are clear. No pleural effusion. The heart, aorta, and pulmonary arteries are of normal size and configuration. There are no appreciable coronary artery and aortic atherosclerotic calcifications. No pericardial effusion is identified. The thyroid is unremarkable. No mediastinal, hilar, or axillary lymphadenopathy is noted. No suspicious lytic or sclerotic osseous lesions are identified. Mild degenerative changes in visualized spine. IMPRESSION: 1. No evidence of pulmonary embolism or pulmonary disease. 2. Soft tissue density nodule in left lower lobe measuring 7 mm in size. Advised follow up after 6 months with low dose CT chest. Electronically signed by Felice Wellington 12-05-2024 12:[address] 12/04/24 22:13 EXAM: CT head/brain wo con CLINICAL HISTORY: headache dizzy TECHNIQUE: Axial non-contrast CT scan of the brain was performed from the skull base to the high parietal region. One of the following dose reduction techniques were utilized for this exam: Automated exposure control, adjustment of the mA and/or kV according to patient size, use of iterative reconstruction. DLP: 2888.29 COMPARISON: None. 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 No evidence of acute infarct, hemorrhage, or mass effect. Atherosclerotic changes seen in both internal carotid and mild atherosclerotic changes seen in both vertebral and basilar arteries Ventricular System: Age appropriate mild dilatation of ventricular system seen. No evidence of hydrocephalus Subarachnoid Spaces: Mild widening of sulci are identified No evidence of subarachnoid hemorrhage or extra-axial fluid collections. Cerebellum and Brainstem: Low-attenuation area seen in both cerebellar hemisphere likely artifactual No masses, lesions seen Orbits: Normal appearance of the globes, optic nerves, and extraocular muscles. No evidence of orbital masses or abnormal signal. Sinuses: Hyperpneumatized sphenoid sinus with septum is not seen Clear paranasal sinuses. No evidence of sinusitis or mucosal thickening. Mild to moderate deviation of nasal septum towards left side Mastoid Air Cells: Clear mastoid air cells. No evidence of mastoiditis. Skull: Normal skull morphology. IMPRESSION: 1. No evidence of intracranial hemorrhage, gross territorial infarction or mass-effect 2. 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 Low-attenuation area seen in both cerebellar hemisphere, more on the left side likely artifactual. If clinically required MRI brain may be obtained 4. Age appropriate volume loss in brain parenchyma and bilateral periventricular deep white matter ischemic changes 5. 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
[2024-12-04] MEDS: ASPIRIN CHEW 324 MG PO STA (22:41)
[2024-12-04] MEDS: ONDANSETRON INJ 2 MG/ML 2 ML VIAL IV STA (22:42)
[2024-12-04] MEDS: SODIUM CHLORIDE 0.9% 500 ML IV ONE (22:42)
[2024-12-04] MEDS: ALBUT/IPRATROP 3MG/0.5MG NEB 3 ML VIAL NEB STA (22:42)
--- NOTE | 2024-12-04 23:26 | XRay Report ---
Exam(s): XR CXR 1 VIEW EXAM: XR Chest, 1 View CLINICAL HISTORY: Chest pain, nonspecific. TECHNIQUE: Frontal view of the chest. COMPARISON: Chest 2 views 10/05/2016 FINDINGS: Lungs: The lungs are stable in appearance without focal airspace consolidation. The pulmonary vasculature is unremarkable. Pleural space: Unremarkable. No pneumothorax. No large pleural effusion. Heart: Unremarkable. No cardiomegaly. Mediastinum: The mediastinal contours are stable and unremarkable. The trachea is midline. Bones/joints: Unremarkable. No acute fracture. IMPRESSION: No acute cardiopulmonary process or significant alteration from the prior examination. Electronically signed by: Chris Espinoza MD 12/04/24 23:25 PM
[2024-12-04] MEDS: OPTIRAY 320 125ml IV ONE (23:56)
--- NOTE | 2024-12-05 00:01 | Emergency Department Note ---
ED Visit Note I was consulted by the Advanced Practice Provider. I personally made or approved the management plan for the patient. I performed a substantive portion of the visit. This includes the aspects of: MDM. .
[2024-12-05 00:58] LABS: Appearance Urine Clear (Clear); Bilirubin Urine Negative (Negative); Blood Urine Negative (Negative); Color Urine Yellow; Glucose Urine UA Negative (Negative); Ketones Urine Negative (Negative); Leukocyte Esterase Urine Negative (Negative); Nitrite Urine Negative (Negative); Protein Urine Negative (Negative); Specific Gravity Urine 1.037 (1.000-1.030); Urobilinogen Urine Negative (Negative); pH Urine 5.5 (4.5-7.5)
--- NOTE | 2024-12-05 00:58 | CT Scan Report ---
EXAM: CT angio chest PE protocol CLINICAL HISTORY: pe 119 cc opti 320 TECHNIQUE: Contiguous axial images were obtained from the neck base through the upper abdomen following intravenous administration of iodinated contrast material. Angiographic images were processed, 3D MIP images were acquired for interpretation. If IV contrast material had not been administered, the likelihood of detecting abnormalities relevant to the patient's condition would have been substantially decreased. Coronal and sagittal 3-D MIPs were likewise performed and indicated to increase the sensitivity of detectin diffuse clinically relevant pathology. CT scan was performed according to ALARA (as low as reasonably achievable). COMPARISON: none FINDINGS: Adequate contrast bolus without evidence of pulmonary embolism. The central airways are patent. A small 3mm subpleural nodule in left lower lobe- not significant. Soft tissue density nodule in left lower lobe measuring 7 mm in size. Emphysematous changes seen in both lungs. Rest of the lungs are clear. No pleural effusion. The heart, aorta, and pulmonary arteries are of normal size and configuration. There are no appreciable coronary artery and aortic atherosclerotic calcifications. No pericardial effusion is identified. The thyroid is unremarkable. No mediastinal, hilar, or axillary lymphadenopathy is noted. No suspicious lytic or sclerotic osseous lesions are identified. Mild degenerative changes in visualized spine. IMPRESSION: 1. No evidence of pulmonary embolism or pulmonary disease. 2. Soft tissue density nodule in left lower lobe measuring 7 mm in size. Advised follow up after 6 months with low dose CT chest. Electronically signed by Felice Wellington 12-05-2024 12:58 AM
--- NOTE | 2024-12-05 01:09 | CT Scan Report ---
EXAM: CT abd pelvis IV con only CLINICAL HISTORY: abd pain n/v/d TECHNIQUE: CT of the abdomen and pelvis was performed, with the following protocol: axial images, and reconstructed coronal and sagittal images. 119 cc opti 320 intravenous contrast was administered. One of the following dose reduction techniques was utilized for this exam: Automated exposure control, adjustment of the mA and/or kV according to patient size, and use of iterative reconstruction. COMPARISON: None. FINDINGS: Sections of lower thorax show diffuse centrilobular emphysematous changes. A 5 mm parenchymal nodule in superior segment of left lower lobe. Few focal areas of pleural nodularity seen in visualized lower lungs. Minimal subpleural basilar atelectatic changes. Abdomen: Liver: Normal in size, and density. No focal lesions, cysts, or masses were identified. Gallbladder and Biliary System: The gallbladder is normal in size and shape. No wall thickening, pericholecystic fluid, or gallstones were identified. Pancreas: Pancreatic head, body, and tail are visualized and appear normal in size and density. No pancreatic masses or calcifications were noted. Spleen: Normal in size, shape, and density. No splenic lesions or masses were identified. Kidneys and Adrenal Glands: Both kidneys are normal in size, shape, and position. No renal calculi or hydronephrosis. A 20 x 10 mm hypodense lesion along the medial limb of left adrenal gland, possibly adenoma. Right adrenal gland appears unremarkable. Pelvis: Urinary Bladder: Normal in contour and wall thickness. Prostate appears unremarkable. Peritoneal and Retroperitoneal Structures: No free fluid or abnormal fluid collections were identified within the abdomen or pelvis. Atherosclerotic aorto-iliac calcifications noted. 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 Bowel: Uncomplicated colonic diverticulosis noted. The visualized bowel loops are normal in caliber and appearance. No evidence of bowel obstruction or wall thickening. Appendix appears normal in caliber without CT evidence of acute appendicitis. Tiny 1-2 mm appendicolith suspected. Bones and Soft Tissues: Degenerative changes in lumbar spine. IMPRESSION: 1. No acute abnormality detected in CT abdomen and pelvis 2. Uncomplicated colonic diverticulosis 3. Left adrenal adenoma 4. 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 Electronically signed by Kaden Matthews 12-05-2024 01:08 AM
--- NOTE | 2024-12-05 01:14 | CT Scan Report ---
EXAM: CT head/brain wo con CLINICAL HISTORY: headache dizzy TECHNIQUE: Axial non-contrast CT scan of the brain was performed from the skull base to the high parietal region. One of the following dose reduction techniques were utilized for this exam: Automated exposure control, adjustment of the mA and/or kV according to patient size, use of iterative reconstruction. DLP: 2888.29 COMPARISON: None. 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 No evidence of acute infarct, hemorrhage, or mass effect. Atherosclerotic changes seen in both internal carotid and mild atherosclerotic changes seen in both vertebral and basilar arteries Ventricular System: Age appropriate mild dilatation of ventricular system seen. No evidence of hydrocephalus Subarachnoid Spaces: Mild widening of sulci are identified No evidence of subarachnoid hemorrhage or extra-axial fluid collections. Cerebellum and Brainstem: Low-attenuation area seen in both cerebellar hemisphere likely artifactual No masses, lesions seen Orbits: Normal appearance of the globes, optic nerves, and extraocular muscles. No evidence of orbital masses or abnormal signal. Sinuses: Hyperpneumatized sphenoid sinus with septum is not seen Clear paranasal sinuses. No evidence of sinusitis or mucosal thickening. Mild to moderate deviation of nasal septum towards left side Mastoid Air Cells: Clear mastoid air cells. No evidence of mastoiditis. Skull: Normal skull morphology. IMPRESSION: 1. No evidence of intracranial hemorrhage, gross territorial infarction or mass-effect 2. 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 Low-attenuation area seen in both cerebellar hemisphere, more on the left side likely artifactual. If clinically required MRI brain may be obtained 4. Age appropriate volume loss in brain parenchyma and bilateral periventricular deep white matter ischemic changes 5. 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
[2024-12-05 02:04] LABS: Lipase 9 U/L (11-82); Magnesium 1.9 mg/dl (1.7-2.4)
--- NOTE | 2024-12-05 02:10 | History & Physical Report ---
Date of Service December 05, 2024 Assessment & Plan (1) SOB (shortness of breath): Plan: Secondary to protracted COPD exacerbation Epigastric discomfort with nausea and vomiting Uncontrolled GERD secondary to steroid Rx, doxycycline Rx possibly contributory hypertension, slight elevated Chest pain with minimal troponin elevation hyperlipidemia on statin Rx Old lacunar infarcts on CT imaging chronic bradycardia PVD, carotid artery disease as per records BPH status post surgery Steroid-induced hyperglycemia rule out DM SPN left, history pulmonary nodules as per records Impacted cerumen, AD Possible deconditioning past tobacco abuse OBS Medical telemetry Nebs RTC, prednisone course Pulmonology consulted without improvement Hold off on additional antibiotic Rx Pepcid for GERD, PPI if without improvement TTE, carotid Dopplers for stroke workup Update lipid profile Check hemoglobin A1c Ceruminolytic for right ear PT OT eval DVT prophylaxis. Lovenox subcu DNR Patient daughters is requesting updates providers. Loretta Hanane Ksenia, contact numbers [phone]. Ms. Caitlin Lopez, contact #[phone]. Text document was generated using [employer] voice recognition software. It may contain grammatical or spelling errors. Kindly contact undersigned for clarification of any documentation item in question. History of Present Illness Chief Complaint: Shortness of breath, dizzy, nausea, vomiting Primary Care Provider: Carmela Llanos, History obtained from patient, family, and records. Medical history significant for hypertension, hyperlipidemia, chronic bradycardia, COPD, PVD, BPH status post surgery, essential tremors, past tobacco abuse. 6 weeks ago, patient noted junky cough symptoms with some SOB. Not sure about sick contacts. Patient seen at PCPs office. Prescribed Augmentin and prednisone course for complicated bronchitis. Symptoms recurred close to completion of medications. Denies aspiration. Cough symptoms productive of clear sputum. Patient seen at PCPs office 9 days ago. Prednisone and doxycycline course prescribed for complicated bronchitis. Symptoms not fully better despite medication compliance. Achy left-sided chest pain from coughing. Headache symptoms associated with dizziness described as lightheadedness. Right ear pain going to the neck without discharge. Denies tinnitus or unusual hearing loss. Subsequent epigastric discomfort described as burning associated with nausea and vomiting. Patient weaker than usual. Patient brought to ER for evaluation. Medical History as above Surgical History : Dental surgery Family History : Breast cancer, colon cancer, dementia, heart disease Personal/Social history : Past tobacco abuse, occasional EtOH intake, retired [employer] business Allergies Allergy/AdvReac Type Severity Reaction Status Date / Time No Known Allergies Allergy Mild Verified 12/04/24 22:58 Home Medications Medication Instructions Recorded Confirmed Type atorvastatin 20 mg tablet 20 mg PO QPM 11/08/19 12/04/24 History aspirin 81 mg tablet,delayed 81 mg PO QPM 04/07/21 12/04/24 History release amlodipine 2.5 mg tablet 2.5 mg PO QPM 06/15/22 12/04/24 History doxycycline hyclate 100 mg capsule 100 mg PO BID 12/04/24 12/04/24 History lisinopril 20 mg tablet 20 mg PO QPM 12/04/24 12/04/24 History nystatin 100,000 unit/gram topical 1 applic topical BID PRN 12/04/24 12/04/24 History ointment DIRECTED triamcinolone acetonide 0.1 % 1 applic topical BID PRN 12/04/24 12/04/24 History topical ointment DIRECTED Past Med/Surg History Problem List (Updated 12/05/24 @ 03:29 by Mary Freedman PA-C) Decreased appetite (Acute) Nausea (Acute) Elevated troponin (Acute) SOB (shortness of breath) (Acute) Chest pain (Acute) Balanitis xerotica obliterans Urethral foreign body (Acute) Urethritis (Acute) BPH loc w urin obs/LUTS Meatal stenosis Urinary problem Encounter for pre-operative examination Medical History Emphysema lung Does not use inhaler. Hyperlipidemia Hypertension Prostate enlargement SOB (shortness of breath) on exertion stable Surgical History History of colonoscopy History of left cataract surgery JUN 15 2022 History of urologic surgery x2 Family History Brother Family history of diabetes mellitus Brother Family history of diabetes mellitus Brother Family history of diabetes mellitus Brother Family history of diabetes mellitus Brother Family history of diabetes mellitus Other Family history of colon cancer in mother Social History Smoking Status: Never smoker Cigarettes Per Day: 1PPD/ADVISED; Second Hand Exposure: No; Do You Dip or Chew Tobacco: No; Hx Alcohol Use: No Hx Substance Use: Yes Preferred Language: Yi Communication Ability: Effective Visual Impairment: No Limitations Hearing Ability: Normal Finished Carpet Inspector Required: No Beliefs That Will Affect Care: Yarsanism Yarsanism Beliefs: PRESBYTERIAN Current Living Situation: Family Current Living Situation Comment: DAUGHTER/SON IN LAW Feels Safe at Home: Yes Assistive Devices: Glasses Review of Systems Review of Systems: As per HPI, all other systems reviewed and negative Physical Exam Physical Exam: GENERAL: Comfortable, pleasant, no respiratory distress SKIN: Normal color, warm HEENT: [place] palpebral conjunctivae, no ptosis, dry buccal mucosa; impacted cerumen right ear, TM not visualized NECK : Supple, no tenderness CHEST : Decreased breath sounds, expiratory wheezes, no tenderness HEART : Bradycardic, no obvious murmurs ABDOMEN: Some distention, nontender EXTREMITIES : No LE swelling/tenderness, no other conspicuous deformities noted NEUROLOGIC : Coherent, no facial asymmetry, intention tremors, gait and stance not assessed Results & Data Results & Data Vital Signs (Past 12 Hours) Vital Signs Temp Pulse Pulse Resp BP BP Pulse Ox 12/05/24 00:31 73 16 141/88 H 99 12/05/24 00:31 12/04/24 23:17 67 18 95 12/04/24 22:49 18 141/88 H 99 12/04/24 20:42 36.3 C L 91 H 18 149/88 H 96 O2 Del Method 12/05/24 00:31 Room Air 12/05/24 00:31 Room Air 12/04/24 23:17 Room Air 12/04/24 22:49 12/04/24 20:42 Room Air Laboratory Results Laboratory Results WBC 8.23 K/ul (4.8-10.8) 12/04/24 20:58 RBC 5.57 M/uL (4.70-6.10) 12/04/24 20:58 Hgb 15.7 g/dl (14.0-18.0) 12/04/24 20:58 Hct 45.3 % (42.0-52.0) 12/04/24 20:58 MCV 81.3 fL (80.0-100.0) 12/04/24 20:58 MCH 28.2 pg (25.0-34.0) 12/04/24 20:58 MCHC 34.7 g/dL (32.0-36.0) 12/04/24 20:58 RDW Std Deviation 42.6 fL (36.4-46.3) 12/04/24 20:58 RDW Coeff of Naheed 14.4 % (11.5-14.5) 12/04/24 20:58 Plt Count 239 K/uL (130-400) 12/04/24 20:58 MPV 9.5 fL (9.4-12.4) 12/04/24 20:58 Immature Gran % (Auto) 9.6 % 12/04/24 20:58 Neut % (Auto) 53.2 % 12/04/24 20:58 Lymph % (Auto) 13.5 % 12/04/24 20:58 [place] % (Auto) 21.5 % 12/04/24 20:58 Eos % (Auto) 1.0 % 12/04/24 20:58 Baso % (Auto) 1.2 % 12/04/24 20:58 Neut # (Auto) 4.38 K/uL (1.40-6.50) 12/04/24 20:58 Lymph # (Auto) 1.11 K/uL (1.20-3.40) L 12/04/24 20:58 Republic # (Auto) 1.77 K/uL (0.11-0.59) H 12/04/24 20:58 Eos # (Auto) 0.08 K/uL (0.00-0.50) 12/04/24 20:58 Baso # (Auto) 0.10 K/uL (0.00-0.20) 12/04/24 20:58 Immature Gran # (Auto) 0.79 K/uL (0.01-0.20) H 12/04/24 20:58 PT 11.9 Seconds (9.0-12.0) 12/04/24 20:58 INR 1.1 (0.9-1.1) 12/04/24 20:58 APTT 27 Seconds (21-31) 12/04/24 20:58 PTT Ratio 1.0 12/04/24 20:58 Sodium 134 mmol/L (136-145) L 12/04/24 20:58 Potassium 3.9 mmol/L (3.5-5.1) 12/04/24 20:58 Chloride 100 mmol/L (98-107) 12/04/24 20:58 Carbon Dioxide 25 mmol/L (21-32) 12/04/24 20:58 Anion Gap 9 (3-11) 12/04/24 20:58 BUN 26 mg/dl (6-23) H 12/04/24 20:58 Creatinine 1.18 mg/dl (0.6-1.4) 12/04/24 20:58 Est Cr Clr Drug Dosing Not Reportable 12/04/24 20:58 eGFR 62.38 12/04/24 20:58 BUN/Creatinine Ratio 22.0 (10-20) H 12/04/24 20:58 Glucose 146 mg/dl (70-99(Fasting)) H 12/04/24 20:58 Calcium 7.8 mg/dl (8.6-10.3) L 12/04/24 20:58 Magnesium 1.9 mg/dl (1.7-2.4) 12/04/24 20:58 Total Bilirubin 0.9 mg/dl (0.2-1.0) 12/04/24 20:58 AST 18 U/L (13-39) 12/04/24 20:58 ALT 19 U/L (7-52) 12/04/24 20:58 Alkaline Phosphatase 77 U/L (34-104) 12/04/24 20:58 Troponin I High Sens 31.4 pg/ml (0-20) H 12/04/24 22:55 Total Protein 5.7 gm/dl (6.0-8.3) L 12/04/24 20:58 Albumin 3.7 gm/dl (3.4-5.0) 12/04/24 20:58 Globulin 2.0 gm/dl (2.5-4.0) L 12/04/24 20:58 Albumin/Globulin Ratio 1.9 (0.9-2) 12/04/24 20:58 Lipase 9 U/L (11-82) L 12/04/24 20:58 Urine Color Yellow 12/05/24 00:42 Urine Appearance Clear (Clear) 12/05/24 00:42 Urine pH 5.5 (4.5-7.5) 12/05/24 00:42 Ur Specific [place] 1.037 (1.000-1.030) H 12/05/24 00:42 Urine Protein Negative (Negative) 12/05/24 00:42 Urine Glucose (UA) Negative (Negative) 12/05/24 00:42 Urine Ketones Negative (Negative) 12/05/24 00:42 Urine Blood Negative (Negative) 12/05/24 00:42 Urine Nitrite Negative (Negative) 12/05/24 00:42 Urine Bilirubin Negative (Negative) 12/05/24 00:42 Urine Urobilinogen Negative (Negative) 12/05/24 00:42 Ur Leukocyte Esterase Negative (Negative) 12/05/24 00:42 SARS-CoV-2 (PCR) NEGATIVE (Negative) 12/04/24 20:58 Influenza Type A (PCR) Negative (Neg) 12/04/24 20:58 Influenza Type B (PCR) Negative (Neg) 12/04/24 20:58 RSV (RT-PCR) Negative (Neg) 12/04/24 20:58 Impressions Chest X-Ray 12/04/24 20:48 Exam(s): XR CXR 1 VIEW EXAM: XR Chest, 1 View CLINICAL HISTORY: Chest pain, nonspecific. TECHNIQUE: Frontal view of the chest. COMPARISON: Chest 2 views 10/05/2016 FINDINGS: Lungs: The lungs are stable in appearance without focal airspace consolidation. The pulmonary vasculature is unremarkable. Pleural space: Unremarkable. No pneumothorax. No large pleural effusion. Heart: Unremarkable. No cardiomegaly. Mediastinum: The mediastinal contours are stable and unremarkable. The trachea is midline. Bones/joints: Unremarkable. No acute fracture. IMPRESSION: No acute cardiopulmonary process or significant alteration from the prior examination. Electronically signed by: Chris Espinoza MD 12/04/24 23:25 PM Abdomen/Pelvis CT 12/04/24 22:13 EXAM: CT abd pelvis IV con only CLINICAL HISTORY: abd pain n/v/d TECHNIQUE: CT of the abdomen and pelvis was performed, with the following protocol: axial images, and reconstructed coronal and sagittal images. 119 cc opti 320 intravenous contrast was administered. One of the following dose reduction techniques was utilized for this exam: Automated exposure control, adjustment of the mA and/or kV according to patient size, and use of iterative reconstruction. COMPARISON: None. FINDINGS: Sections of lower thorax show diffuse centrilobular emphysematous changes. A 5 mm parenchymal nodule in superior segment of left lower lobe. Few focal areas of pleural nodularity seen in visualized lower lungs. Minimal subpleural basilar atelectatic changes. Abdomen: Liver: Normal in size, and density. No focal lesions, cysts, or masses were identified. Gallbladder and Biliary System: The gallbladder is normal in size and shape. No wall thickening, pericholecystic fluid, or gallstones were identified. Pancreas: Pancreatic head, body, and tail are visualized and appear normal in size and density. No pancreatic masses or calcifications were noted. Spleen: Normal in size, shape, and density. No splenic lesions or masses were identified. Kidneys and Adrenal Glands: Both kidneys are normal in size, shape, and position. No renal calculi or hydronephrosis. A 20 x 10 mm hypodense lesion along the medial limb of left adrenal gland, possibly adenoma. Right adrenal gland appears unremarkable. Pelvis: Urinary Bladder: Normal in contour and wall thickness. Prostate appears unremarkable. Peritoneal and Retroperitoneal Structures: No free fluid or abnormal fluid collections were identified within the abdomen or pelvis. Atherosclerotic aorto-iliac calcifications noted. 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 Bowel: Uncomplicated colonic diverticulosis noted. The visualized bowel loops are normal in caliber and appearance. No evidence of bowel obstruction or wall thickening. Appendix appears normal in caliber without CT evidence of acute appendicitis. Tiny 1-2 mm appendicolith suspected. Bones and Soft Tissues: Degenerative changes in lumbar spine. IMPRESSION: 1. No acute abnormality detected in CT abdomen and pelvis 2. Uncomplicated colonic diverticulosis 3. Left adrenal adenoma 4. 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 Electronically signed by Kaden Matthews 12-05-2024 01:08 AM Chest CTA 12/04/24 22:13 EXAM: CT angio chest PE protocol CLINICAL HISTORY: pe 119 cc opti 320 TECHNIQUE: Contiguous axial images were obtained from the neck base through the upper abdomen following intravenous administration of iodinated contrast material. Angiographic images were processed, 3D MIP images were acquired for interpretation. If IV contrast material had not been administered, the likelihood of detecting abnormalities relevant to the patient's condition would have been substantially decreased. Coronal and sagittal 3-D MIPs were likewise performed and indicated to increase the sensitivity of detectin diffuse clinically relevant pathology. CT scan was performed according to ALARA (as low as reasonably achievable). COMPARISON: none FINDINGS: Adequate contrast bolus without evidence of pulmonary embolism. The central airways are patent. A small 3mm subpleural nodule in left lower lobe- not significant. Soft tissue density nodule in left lower lobe measuring 7 mm in size. Emphysematous changes seen in both lungs. Rest of the lungs are clear. No pleural effusion. The heart, aorta, and pulmonary arteries are of normal size and configuration. There are no appreciable coronary artery and aortic atherosclerotic calcifications. No pericardial effusion is identified. The thyroid is unremarkable. No mediastinal, hilar, or axillary lymphadenopathy is noted. No suspicious lytic or sclerotic osseous lesions are identified. Mild degenerative changes in visualized spine. IMPRESSION: 1. No evidence of pulmonary embolism or pulmonary disease. 2. Soft tissue density nodule in left lower lobe measuring 7 mm in size. Advised follow up after 6 months with low dose CT chest. Electronically signed by Felice Wellington 12-05-2024 12:[address] 12/04/24 22:13 EXAM: CT head/brain wo con CLINICAL HISTORY: headache dizzy TECHNIQUE: Axial non-contrast CT scan of the brain was performed from the skull base to the high parietal region. One of the following dose reduction techniques were utilized for this exam: Automated exposure control, adjustment of the mA and/or kV according to patient size, use of iterative reconstruction. DLP: 2888.29 COMPARISON: None. 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 No evidence of acute infarct, hemorrhage, or mass effect. Atherosclerotic changes seen in both internal carotid and mild atherosclerotic changes seen in both vertebral and basilar arteries Ventricular System: Age appropriate mild dilatation of ventricular system seen. No evidence of hydrocephalus Subarachnoid Spaces: Mild widening of sulci are identified No evidence of subarachnoid hemorrhage or extra-axial fluid collections. Cerebellum and Brainstem: Low-attenuation area seen in both cerebellar hemisphere likely artifactual No masses, lesions seen Orbits: Normal appearance of the globes, optic nerves, and extraocular muscles. No evidence of orbital masses or abnormal signal. Sinuses: Hyperpneumatized sphenoid sinus with septum is not seen Clear paranasal sinuses. No evidence of sinusitis or mucosal thickening. Mild to moderate deviation of nasal septum towards left side Mastoid Air Cells: Clear mastoid air cells. No evidence of mastoiditis. Skull: Normal skull morphology. IMPRESSION: 1. No evidence of intracranial hemorrhage, gross territorial infarction or mass-effect 2. 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 Low-attenuation area seen in both cerebellar hemisphere, more on the left side likely artifactual. If clinically required MRI brain may be obtained 4. Age appropriate volume loss in brain parenchyma and bilateral periventricular deep white matter ischemic changes 5. 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 Diagnostic Findings EKG as per my interpretation :Rate 75, NSR, normal axis, T wave abnormality septal leads
--- OUTSIDE RECORDS SUMMARY | 2024-12-05 02:12 | External Medical Summary | Summary of Care ---
Author Name Unknown Organization [facility] Address [address] [place] [address] Phone [phone] Care Team Providers Care Watch Commander Name Role Phone Carmela Llanos DO Primary Care Provider Reason for Visit * Reason Comments Follow Up Pt here to follow up on recent illness, completed course of abx and prednisone. Pt states he continues with cough and SOB Encounter Details Date Type Department Care Team (Latest Contact Info) Description 11/26/2024 1:20 PM EST Office Visit Family Practice [facility] [address] [place] [address] Ananda Tran MD [address] [place] [address] Bronchitis, complicated*; Tobacco use disorder; COPD, group A, by GOLD 2017 classification (HCC) Allergies No known active allergiesdocumented as of this encounter (statuses as of 11/26/2024) Medications Aspirin 81 MG Tablet Take 1 Tablet by mouth every evening. 34 Tab 5 6 Active Lisinopril 20 MG Oral Tablet (Prinivil)Indica tions:Essential hypertension with goal blood pressure less than 130/80 Take 1 Tablet by mouth daily. 90 Tablet 3 10/31/2024 10:44 AM EST 4 Active amLODIPine Besylate 2.5 MG Oral Tablet (Norvasc)Indicat ions:Essential hypertension with goal blood pressure less than 130/80 Take 1 Tablet by mouth at bedtime. 90 Tablet 3 10/31/2024 10:44 AM EST 4 Active Atorvastatin Calcium 20 MG Oral Tablet (Lipitor)Indicat ions:Hypercholes teremia TAKE 1 TABLET BY MOUTH ONCE DAILY IN THE MORNING 90 Tablet 3 10/31/2024 10:44 AM EST 4 Active Nystatin 594685 UNIT/GM External Ointment apply 1 application topically twice a day to affected area as needed 30 g 2 09/02/2024 10:46 AM EDT 4 Active Triamcinolone Acetonide 0.1 % External Ointment (Aristocort) apply 1 application topically twice a day to affected area as needed 30 g 2 09/02/2024 10:46 AM EDT 4 Active predniSONE 20 MG Oral Tablet (Deltasone)Indic ations:Bronchiti s, complicated Take 4 tabs daily for 2 days, 3 tabs daily for 2 days, 2 tabs daily for 2 days, 1 tab daily for 2 days 20 Tablet 11/26/2024 1:28 PM EST 5 Active Doxycycline Hyclate 100 MG Oral CapsuleIndicatio ns:Bronchitis, complicated Take 1 Capsule by mouth in the morning and 1 Capsule before bedtime. Do all this for 10 days. Until gone.. 20 Capsule 11/26/2024 1:28 PM EST 5 12/06/19 25 Active guaiFENesin-Code ine 100-10 MG/5ML Oral Solution (Robitussin AC)Indications:B ronchitis, complicated Take 5 mL by mouth 2 times a day as needed for Cough. 473 mL 11/26/2024 1:28 PM EST 5 Active documented as of this encounter (statuses as of 11/26/2024) Active Problems Problem Noted Date Diagnosed Date Overweight (BMI 25.0-29.9) 11/26/2024 COPD, group A, by GOLD 2017 classification 05/25 Overview: Per COPD GOLD Classification Dyslipidemia 05/24/2017 HTN, goal below 140/90 11/23/2016 Asymptomatic carotid artery stenosis, right 11/13 Bradycardia, sinus 11/23/2016 Tobacco use disorder 02/27/2006 documented as of this encounter (statuses as of 11/26/2024) Resolved Problems Problem Noted Date Diagnosed Date Resolved Date COPD, severity to be determined 11/21/2017 05/28/2020 Overview: Per COPD GOLD Classification HTN, goal below 130/80 01/20/201701/18 FAMILY HX-GI MALIGNANCY 06/23/200611/13 Screening for prostate cancer 06/23/2006 03/26/2009 Overview (03/26/2009): Resolved per Screening Diagnosis Protocol #6 Labyrinthitis, unspecified 0 06/23/2006 Labyrinthitis, unspecified 0 07/26/2018 documented as of this encounter (statuses as of 11/26/2024) Immunizations Name Administration Dates Next Due COVID-19 mRNA, LNP-s, No Pre serve, 2-Dose Series ([employer]) 01/22/2021,01/01/2021 PPD 09/19/2020 Pneumococcal Conjugate Vacc, 13 Valent (Prevnar) 2016 Pneumococcal Polysaccharide PPV23 (Pneumovax) RSV Vac., Bivalent, Perfusion F, Pf,0.5 Ml (Abry svo) 07/02/2024 Season Influenza, Quad, PF, Adjuvanted, 65+ Yrs, IM (FLUAD) 09/19/2020 Seasonal Influenza, High Dos e, Trivalent, PF, IM (Fluzone HD) 09/02/2024 Seasonal Influenza, PF, 6 M & above, IM , (FluLaval or Fluzone) 07/26/2018,08/17/2017 Seasonal Influenza, Quadrivalent Hd (Fluzone Hd) 09/25/2023,08/29/2022 Seasonal Influenza, Quadrivalent, No Preserve, I M 2016 Seasonal Influenza, Trivalen t, Adjuvanted, 65+ YRS, PF, (Fluad) 08/13/2019 TDAP (age 10 and older)(Boostrix) 09/25/2016 Zoster Vaccine Recombinant (Shingrix) 06/25/2024 ,01/23/2024 documented as of this encounter Social History Tobacco Use Types Packs/Day Years Used Date Smoking Tobacco: Former Cigarettes 1.5 30 0 06/17/1993 - 06/17/2023 Smokeless Tobacco: Never Comments:2 packs a day, for past 50 years off and on, quit 07/14/2016 Smokes up to 1 ppd as of 03/16/23 Quit 06/17/23 Alcohol Use Standard Drinks/Week Comments No 0 (1 standard drink = 0.6 oz pure alcohol) /Quit 03/18 before 6 pack 4-5 x week PHQ-2 Answer Date Recorded PHQ Adult Total Score 0 05/08/2024 Hunger Vital Sign Answer Date Recorded Within the past 12 months, y ou worried that your food would run out before you got the money to buy more. Never true 01/22/20 24 Within the past 12 months, t he food you bought just didn't last and you didn't have money to get more. Never true 01/22/2024 Childcare Answer Date Recorded Do you feel overwhelmed with taking care of a child, family member or friend? No 01/22/2024 Does your family need help f inding childcare? (Household - for ages 0-17 years) Not on file 01/22/2024 Clothing Answer Date Recorded Have you been unable to get clothing when it was really needed? No 01/22/2024 Is your family able to get c lothes or diapers when needed? (Household - for ages 0-17 years) Not on file 01/22/2024 Personal Safety Answer Date Recorded Do you feel unsafe or have concerns for your saf ety? No 01/22/2024 Do you have concerns for you r family's safety? (Household - for ages 0-17 years) Not on file 01/22/2024 Utilities Answer Date Recorded Do you have trouble paying y our heating, water, or electric bill? No 01/22/2024 Is your family able to pay t he heat, water, or electric bill? (Household - for ages 0-17 years) Not on file 01/22/2024 Does your family have access to good internet? (Household - for ages 0-17 years) Not on file 01/22/2024 Employment Status Answer Date Recorded Are you unemployed or without regular income? No 01/22/2024 Does the household have a re gular source of income? (Household - for ages 0-17 years) Not on file 01/22/2024 Social Connections Answer Date Recorded How often do you feel lonely or isolated from th ose around you? Rarely 01/22/2024 Financial Resource Strain Answer Date R ecorded Do you have any trouble payi ng for your medications, or do you think you might in the future? No 01/22/2024 Does your family have troubl e paying for medicine? (Household - for ages 0-17 years) Not on file 01/22/2024 Transportation Needs Answer Date Record ed READ ONLY Do you have troubl e getting a ride to medical visits or work? Never True 01/22/2024 Does your family have a hard time getting a ride to doctors visits? (Household - for ages 0-17 years) Not on file 01/22/2024 Has lack of transportation k ept you from medical appointments, meetings, work, or from getting things needed for daily living? Check all that apply. (Adult - for ages 18 years and over) Not on file 01/22/2024 Do you (or your family) have trouble finding or paying for a ride (transportation)? (Household - for ages 0-17 years) Not on file 01/22/2024 Housing Stability Answer Date Recorded Do you currently live in a s helter or have no steady place to sleep at night? No 01/22/2024 READ ONLY Do you think you a re at risk of becoming homeless? No 01/22/2024 Does your family worry about paying for your home or becoming homeless? (Household - for ages 0-17 years) Not on file 0 01/22/2024 Are you homeless or worried that you might be in the future? (Adult - for ages 18 years and over) Not on file Are you (or your family) thomas eless or worried that you might be in the future? (Household - for ages 0-17 years) Not on file Food Insecurity Answer Date Recorded Do you need food for this week? No 01/22/2024 Are you able to get enough f ood for your family? (Household - for ages 0-17 years) Not on file 01/22/2024 Does your family need food t his week? (Household - for ages 0-17 years) Not on file 01/22/2024 Do you always have enough fo od for your family? 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 Not on file Not on file Not on file documented as of this encounter Last Filed Vital Signs Vital Sign Reading Time Taken Comments Blood Pressure 132/64 11/26/2024 1:00 PM EST Pulse 88 11/26/2024 1:00 PM EST Temperature 36.4 C (97.5 F) 11/26/2024 1:00 PM ES T Respiratory Rate 22 11/26/2024 1:00 PM EST Oxygen Saturation 96% 11/26/2024 1:00 PM EST Inhaled Oxygen Concentration - - Weight 83.5 kg (184 lb) 11/26/2024 1:00 PM EST Height 175.3 cm (5' 9") 11/26/2024 1:00 PM EST Body Mass Index 27.17 11/26/2024 1:00 PM EST documented in this encounter Progress Notes * Ananda Tran MD - 11/26/2024 1:49 PM EST SUBJECTIVE: Idris Goodman is a 79 year old male. Chief Complaint Patient presents with Follow Up Pt here to follow up on recent illness, completed course of abx and prednisone. Pt states he continues with cough and SOB HPI: Here unaccompanied for continued cough and congestion. He is an 79 year old dedicated smoker with COPD. He recently completed a course of augmentin with steroids for upper respiratory infection. He felt better while on medication, however, symptoms returned. He denies fevers or shortness of breath. Patient Active Problem List Diagnosis Tobacco use disorder HTN, goal below 140/90 Asymptomatic carotid artery stenosis, right Bradycardia, sinus Dyslipidemia COPD, group A, by GOLD 2017 classification (HCC) Overweight (BMI 25.0-29.9) Current Outpatient Medications Medication Sig Dispense Refill Aspirin 81 MG Tablet Take 1 Tablet by mouth every evening. 34 Tab 5 Lisinopril 20 MG Oral Tablet (Prinivil) Take 1 Tablet by mouth daily. 90 Tablet 3 amLODIPine Besylate 2.5 MG Oral Tablet (Norvasc) Take 1 Tablet by mouth at bedtime. 90 Tablet 3 Atorvastatin Calcium 20 MG Oral Tablet (Lipitor) TAKE 1 TABLET BY MOUTH ONCE DAILY IN THE MORNING 90 Tablet 3 Nystatin 555498 UNIT/GM External Ointment apply 1 application topically twice a day to affected area as needed 30 g 2 Triamcinolone Acetonide 0.1 % External Ointment (Aristocort) apply 1 application topically twice a day to affected area as needed 30 g 2 predniSONE 20 MG Oral Tablet (Deltasone) Take 4 tabs daily for 2 days, 3 tabs daily for 2 days, 2 tabs daily for 2 days, 1 tab daily for 2 days 20 Tablet 0 Doxycycline Hyclate 100 MG Oral Capsule Take 1 Capsule by mouth in the morning and 1 Capsule beforebedtime. Do all this for 10 days. Until gone.. 20 Capsule 0 guaiFENesin-Codeine 100-10 MG/5ML Oral Solution (Robitussin AC) Take 5 mL by mouth 2 times a day asneeded for Cough. 473 mL 0 No current facility-administered medications for this visit. Allergy: Review of patient's allergies indicates: No Known Allergies OBJECTIVE: BP 132/64 | Pulse 88 | Temp 97.5 F (36.4 C) | Resp 22 | Ht 5' 9" (1.753 m) | Wt 184 lb (83.5 kg) | SpO2 96% | BMI 27.17 kg/m | BSA 2.02 m General: alert, healthy, and no distress Head: Normocephalic, No masses, lesions, tenderness or abnormalities Neck: supple, no adenopathy, no bruits, thyroid normal size, non-tender, without nodularity Lungs: chest symmetric with normal AP diameter, no chest deformities noted, no chest wall tenderness, lungs clear to auscultation Heart: regular rate & rhythm, no murmur, and no gallops Pulses: carotid=2/4 w/o bruits ASSESSMENT AND PLAN: (J40) Bronchitis, complicated (primary encounter diagnosis) Plan: predniSONE 20 MG Oral Tablet (Deltasone), Doxycycline Hyclate 100 MG Oral Capsule, guaiFENesin-Codeine 100-10 MG/5ML Oral Solution (Robitussin AC) (F17.200) Tobacco use disorder Plan: dedicated smoker (J44.9) COPD, group A, by GOLD 2017 classification (HCC) Plan: stable Follow up as needed. No other complaints were offered at this time. Ananda Tran MD documented in this encounter Nursing Notes * Lucille Marie LPN - 11/26/2024 1:00 PM EST The patient has been properly identified by confirmation of name and date of . Chief Complaint Patient presents with Follow Up Pt here to follow up on recent illness, completed course of abx and prednisone. Pt states he continues with cough and SOB documented in this encounter Plan of Treatment Upcoming Encounters Date Type Department Care Team (Late st Contact Info) Description 12/31/2024 10:00 AM EST Office Visit Family Practice [facility] [address] [place] [address] Carmela Llanos DO [address] [place] [address] 03/24/2025 9:30 AM EDT Office Visit Cardiology, [facility] [address] [address] Ghassan Bland MD [address] [place] [address] Scheduled Procedures Name Priority Associated Diagnoses Date/Ti me COLONOSCOPY FLEXIBLE PROXIMA L DIAGNOSTIC Recall History of colonic polyps Health Maintenance Due Date Last Done Comments Alpha-1 Antitrypsin 1962 Adult Wellness Visit 2010 *COPD SEVERITY VERIFIED BY PFT 11/25/2017 GFR 03/22/2024 03/22/2023, 05/13, 03/22/2021, Additional history exists COVID-19 Vaccine (3 - season) 2024 01/22/2021, 01/01/2021 Depression Screening 05/08/2025 05/08/2024 O2 ASSESSMENT COMPLETED IN PAST YEAR FOR COPD 06/06/2025 06/06/2024 Albumin/Creatinine Ratio 11/15/2025 11/15/2022 DTap/Tdap Vaccines (2 - Td or Tdap) 09/25/2026 09/25/2016 Colonoscopy 06/06/2029 06/06/2024, 05/14, 02/24/2022, Additional history exists Pneumococcal Vaccine: 50+ Years Completed 08/17/2017, 2016 Lung Cancer Screening Completed 04/05/2022 , 03/22/2021, 03/23/2020, Additional history exists RETIRED - COLONOSCOPY-EVERY 2 YRS AGES 18-100 Discontinued 06/06/2024, 06/06/2024, 02/24/2022, Additional history exists RETIRED - COLONOSCOPY-EVERY 5 YRS AGES 18-100 Discontinued 06/06/2024, 06/06/2024, 02/24/2022, Additional history exists Zoster Vaccines Completed 06/25/2024, 01/23/2024 Influenza Vaccine (FLU shot) Completed 09/02/2024, 09/02/2024, 09/25/2023, Additional history exists HPV (Gardasil) Vaccine Aged Out No lo nger eligible based on patient's age to complete this topic Hepatitis B Vaccine Aged Out No longe r eligible based on patient's age to complete this topic MENINGOCOCCAL (MENACTRA/MENVEO) Aged Out No longer eligible based on patient's age to complete this topic documented as of this encounter Medical Devices Not on filedocumented as of this encounter Visit Diagnoses Diagnosis Bronchitis, complicated- Primary Bronchitis, not specified as acute or chronic Tobacco use disorder COPD, group A, by GOLD 2017 classification (HCC) documented in this encounter Care Teams Watch Commander Relationship Specialty Start Date End Date Carmela Llanos DO [address] [address] PCP - General Family Medicine 10/04/16 documented as of this encounter
--- OUTSIDE RECORDS SUMMARY | 2024-12-05 02:13 | External Medical Summary | Summary of Care ---
Author Name Unknown Organization [facility] Address [address] [facility] [address] Phone [phone] Care Team Providers Care Desktop Support Technician Name Role Phone Carmela Llanos DO Primary Care Provider [phone] Encounter Details Date Type Department Care Team (Late st Contact Info) Description 06/24/2024 Orders Only PATIENT PORTAL DO NOT DELETE THIS DEPT USED BY [place] [id number] Allergies No known active allergiesdocumented as of this encounter (statuses as of 06/24/2024) Medications Medication Sig Dispensed Refills Start Date End Date Status Aspirin 81 MG Tablet Take 1 Tablet by mouth every evening. 34 Tab 5 10/28/2016 Active Lisinopril 20 MG Oral Tablet (Prinivil)Indication s:Essential hypertension with goal blood pressure less than 130/80 Take 1 Tablet by mouth daily. 90 Tablet 3 01/23/2024 Active amLODIPine Besylate 2.5 MG Oral Tablet (Norvasc)Indications :Essential hypertension with goal blood pressure less than 130/80 Take 1 Tablet by mouth at bedtime. 90 Tablet 3 01/23/2024 Active Atorvastatin Calcium 20 MG Oral Tablet (Lipitor)Indications :Hypercholesteremia TAKE 1 TABLET BY MOUTH ONCE DAILY IN THE MORNING 90 Tablet 3 02/28/2024 Active Nystatin 637409 UNIT/GM External Ointment apply 1 application topically twice a day to affected area as needed 30 g 2 02/29/2024 Active Triamcinolone Acetonide 0.1 % External Ointment (Aristocort) apply 1 application topically twice a day to affected area as needed 30 g 2 02/29/2024 Active documented as of this encounter (statuses as of 06/24/2024) Active Problems Problem Noted Date Diagnosed Date COPD, group A, by GOLD 2017 classification 05/25 Overview: Per COPD GOLD Classification Dyslipidemia, goal LDL below 70 05/24/2017 HTN, goal below 140/90 11/23/2016 Asymptomatic carotid artery stenosis, right 11/13 Bradycardia, sinus 11/23/2016 FAMILY HX-GI MALIGNANCY 06/23/2006 Tobacco use disorder 02/27/2006 documented as of this encounter (statuses as of 06/24/2024) Resolved Problems Problem Noted Date Diagnosed Date Resolved Date COPD, severity to be determined 11/21/2017 05/28/2020 Overview: Per COPD GOLD Classification HTN, goal below 130/80 01/20/201701/18 Screening for prostate cancer 06/23/2006 03/26/2009 Overview: Resolved per Screening Diagnosis Protocol #6 Labyrinthitis, unspecified 0 06/23/2006 Labyrinthitis, unspecified 0 07/26/2018 documented as of this encounter (statuses as of 06/24/2024) Immunizations Name Administration Dates Next Due COVID-19 mRNA, LNP-s, No Pre serve, 2-Dose Series ([employer]) 01/22/2021,01/01/2021 PPD 09/19/2020 Pneumococcal Conjugate Vacc, 13 Valent (Prevnar) 2016 Pneumococcal Polysaccharide PPV23 (Pneumovax) Season Influenza, Quad, PF, Adjuvanted, 65+ Yrs, IM (FLUAD) 09/19/2020 Seasonal Influenza, PF, 6 M & above, IM , (FluLaval or Fluzone) 07/26/2018,08/17/2017 Seasonal Influenza, Quadrivalent Hd (Fluzone Hd) 09/25/2023,08/29/2022 Seasonal Influenza, Quadrivalent, No Preserve, I M 2016 Seasonal Influenza, Trivalent, Adjuvanted, 65+ y rs 08/13/2019 TDAP (age 10 and older)(Boostrix) 09/25/2016 Zoster Vaccine Recombinant (Shingrix) 01/23/2024 documented as of this encounter Social History [...] Assigned at Male 01/22/2024 11:32 AM EDT Gender Identity Male 01/22/2024 11:32 AM EDT Sexual Orientation Straight 01/22/2024 11 :32 AM EDT Job Start Date Occupation Industry Not on file Not on file Not on file documented as of this encounter Plan of Treatment Upcoming Encounters Date Type Department Care Team (Late st Contact Info) Description 08/08/2024 1:00 PM EDT Office Visit Cardiology, [facility] [address] [place] [address] Ghassan Bland MD [address] [place] [address] 12/31/2024 8:20 AM EST Office Visit Family Practice [facility] [address] [address] Carmela Llanos DO [address] [place] [address] Scheduled Procedures Name Priority Associated Diagnoses Date/Ti me COLONOSCOPY FLEXIBLE PROXIMA L DIAGNOSTIC Recall History of colonic polyps Health Maintenance Due Date Last Done Comments Alpha-1 Antitrypsin 1963 Hepatitis C Screening 1963 Adult Wellness Visit 2010 *COPD SEVERITY VERIFIED BY PFT 11/25/2017 COVID-19 Vaccine ( season) 2023 01/22/2021, 01/01/2021 Zoster Vaccines (2 of 2) 03/19/2024 01/23/2024 GFR 03/22/2024 03/22/2023, 05/13, 03/22/2021, Additional history exists Influenza Vaccine (FLU shot) (#1) 2024 09/25/2023, 08/29/2022, 09/19/2020, Additional history exists Depression Screening 05/08/2025 05/08/2024 O2 ASSESSMENT COMPLETED IN PAST YEAR FOR COPD 06/06/2025 06/06/2024 Albumin/Creatinine Ratio 11/15/2025 11/15/2022 DTaP,Tdap,and Td Vaccines (2 - Td or Tdap) 09/25/2026 09/25/2016 Colonoscopy 06/06/2029 06/06/2024, 05/14, 02/24/2022, Additional history exists Pneumococcal Vaccine: 65+ Years Completed 08/17/2017, 2016 Lung Cancer Screening Completed 04/05/2022 , 03/22/2021, 03/23/2020, Additional history exists RETIRED - COLONOSCOPY-EVERY 2 YRS AGES 18-100 Discontinued 06/06/2024, 06/06/2024, 02/24/2022, Additional history exists RETIRED - COLONOSCOPY-EVERY 5 YRS AGES 18-100 Discontinued 06/06/2024, 06/06/2024, 02/24/2022, Additional history exists HPV (Gardasil) Vaccine Aged [...] Not on filedocumented as of this encounter Care Teams Desktop Support Technician Relationship Specialty Start Date End Date Carmela Llanos DO [address] [place] [address] PCP - General Family Medicine 10/04/16 documented as of this encounter
--- OUTSIDE RECORDS SUMMARY | 2024-12-05 02:13 | External Medical Summary | Summary of Care ---
Author Name Unknown Organization [facility] Address [address] [place] [address] Phone [phone] Care Team Providers Care Coping Machine Operator Name Role Phone Carmela Llanos DO Primary Care Provider Reason for Visit * Reason Onset Date Comments Advice 05/08/2024 Poison - spreadi ng Encounter Details Date Type Department Care Team (Late st Contact Info) Description 05/08/2024 Telephone Family Practice [facility] [address] [place] [address] Carmela Llanos DO [address] [place] [address] Advice (Poison - spreading) Allergies No known active allergiesdocumented as of this encounter (statuses as of 08/07/2024) Medications Medication Sig Dispensed Refills Start Date [...] MORNING 90 Tablet 3 02/28/2024 Active Nystatin 466956 UNIT/GM External Ointment apply 1 application topically twice a day to affected area as needed 30 g 2 02/29/2024 Active Triamcinolone Acetonide 0.1 % External Ointment (Aristocort) apply 1 application topically twice a day to affected area as needed 30 g 2 02/29/2024 Active documented as of this encounter (statuses as of 08/07/2024) Active Problems Problem Noted Date Diagnosed Date COPD, group A, by GOLD 2017 classification 05/25 Overview: Per COPD GOLD Classification Dyslipidemia, goal LDL below 70 05/24/2017 HTN, goal below 140/90 11/23/2016 Asymptomatic carotid artery stenosis, right 11/13 Bradycardia, sinus 11/23/2016 FAMILY HX-GI MALIGNANCY 06/23/2006 Tobacco use disorder 02/27/2006 documented as of this encounter (statuses as of 08/07/2024) Resolved Problems Problem Noted Date Diagnosed Date Resolved Date COPD, severity to be determined 11/21/2017 05/28/2020 Overview: Per COPD GOLD Classification HTN, goal below 130/80 01/20/201701/18 Screening for prostate cancer 06/23/2006 03/26/2009 Overview: Resolved per Screening Diagnosis Protocol #6 Labyrinthitis, unspecified 0 06/23/2006 Labyrinthitis, unspecified 0 07/26/2018 documented as of this encounter (statuses as of 08/07/2024) Immunizations Name Administration Dates Next Due COVID-19 mRNA, LNP-s, No Pre serve, 2-Dose Series (Noblivity) 01/22/2021,01/01/2021 PPD 09/19/2020 Pneumococcal Conjugate Vacc, 13 [...] on file documented as of this encounter Miscellaneous Notes * Telephone Encounter - Carmela Llanos DO - 05/08/2024 12:42 PM EDT Rec pt keep appt today Fyi Dr. Johnson * Telephone Encounter - Kirti Briggs RN - 05/08/2024 8:29 AM EDT I'm not sure what pt is looking for from Dr Llanos if he is seeing Alex this evening. * Telephone Encounter - Wilfrido Silva OSA - 05/08/2024 7:19 AM EDT Patient calling and states that he has poisoning and it is spreading over his body. Patient has a 6pm appointment today. Patient states that Dr. Llanos advised that if he ever needs anything to call. documented in this encounter Plan of Treatment Upcoming Encounters Date Type Department Care Team (Late st Contact Info) Description 12/31/2024 8:20 AM EST Office Visit Family Practice [facility] [address] [place] [address] Carmela Llanos DO [address] [place] [address] 01/20/2025 2:30 PM EDT Office Visit Cardiology, [facility] [address] [place] [address] Ghassan Bland MD [address] [place] [address] Scheduled Procedures Name Priority Associated Diagnoses Date/Ti me COLONOSCOPY FLEXIBLE PROXIMA L DIAGNOSTIC Recall History of colonic polyps Health Maintenance Due Date Last Done Comments Alpha-1 Antitrypsin 1962 Hepatitis C Screening 1963 Adult Wellness Visit 2010 *COPD SEVERITY VERIFIED BY PFT 11/25/2017 GFR 03/22/2024 03/22/2023, 05/13, 03/22/2021, Additional history exists COVID-19 Vaccine ( season) 2024 01/22/2021, 01/01/2021 Influenza Vaccine (FLU shot) (#1) 2024 09/25/2023, [...] history exists Zoster Vaccines Completed 06/25/2024, 01/23/2024 HPV (Gardasil) Vaccine Aged Out No lo [...] filedocumented as of this encounter Care Teams Coping Machine Operator Relationship Specialty Start Date End Date Carmela Llanos DO [address] [place] [address] PCP - General Family Medicine 10/04/16 documented as of this encounter
--- OUTSIDE RECORDS SUMMARY | 2024-12-05 02:13 | External Medical Summary | Summary of Care ---
Author Name Unknown Organization [facility] Address [address] [place] [address] Phone [phone] Care Team Providers Care Plant Operations Engineer Name Role Phone Carmela Llanos DO Primary Care Provider [phone] Reason for Visit * Reason Comments Acute Pt here with c/o nancy rseness with his voice, he coughs a lot but was former smoker. Began after he had the flu shot. Encounter Details Date Type Department Care Team (Late st Contact Info) Description 10/31/2024 10:20 AM EST Office Visit Family Practice [facility] [address] [place] [address] Felice Muniz MD [address] [place] [address] [place] [phone] Bronchitis, complicated* Allergies No known active allergiesdocumented as of this encounter (statuses as of 10/31/2024) Medications Aspirin 81 MG Tablet Take 1 Tablet by mouth every evening. 34 Tab 5 10/28/20 16 Active Lisinopril 20 MG Oral Tablet (Prinivil)Indica tions:Essential hypertension with goal blood pressure less than 130/80 Take 1 Tablet by mouth daily. 90 Tablet 3 10/31/2024 10:44 AM EST 01/23/20 24 Active amLODIPine Besylate 2.5 MG Oral Tablet (Norvasc)Indicat ions:Essential hypertension with goal blood pressure less than 130/80 Take 1 Tablet by mouth at bedtime. 90 Tablet 3 10/31/2024 10:44 AM EST 01/23/20 24 Active Atorvastatin Calcium 20 MG Oral Tablet (Lipitor)Indicat ions:Hypercholes teremia TAKE 1 TABLET BY MOUTH ONCE DAILY IN THE MORNING 90 Tablet 3 10/31/2024 10:44 AM EST 02/28/20 24 Active Nystatin 074332 UNIT/GM External Ointment apply 1 application topically twice a day to affected area as needed 30 g 2 09/02/2024 10:46 AM EDT 02/29/20 24 Active Triamcinolone Acetonide 0.1 % External Ointment (Aristocort) apply 1 application topically twice a day to affected area as needed 30 g 2 09/02/2024 10:46 AM EDT 02/29/20 24 Active Amoxicillin-Pot Clavulanate 875-125 MG Oral Tablet (Augmentin)Indic ations:Bronchiti s, complicated Take 1 Tablet by mouth in the morning and 1 Tablet before bedtime for 10 days. 20 Tablet 10/31/2024 10:44 AM EST 10/31/20 24 Active predniSONE 20 MG Oral Tablet (Deltasone)Indic ations:Bronchiti s, complicated Take two tablets by mouth daily with food for 5 days, then one daily with food 15 Tablet 10/31/2024 10:44 AM EST 10/31/20 24 024 Active Fluzone High-Dose 0.5 ML Suspension Prefilled Syringe Inject into a large muscle. 0.5 mL 08/05/20 24 024 Discontin ued(End of Procedure ) documented as of this encounter (statuses as of 10/31/2024) Active Problems Problem Noted Date Diagnosed Date COPD, group A, by GOLD 2017 classification 05/25 Overview: Per COPD GOLD Classification Dyslipidemia, goal LDL below 70 05/24/2017 HTN, goal below 140/90 11/23/2016 Asymptomatic carotid artery stenosis, right 11/13 Bradycardia, sinus 11/23/2016 FAMILY HX-GI MALIGNANCY 06/23/2006 Tobacco use disorder 02/27/2006 documented as of this encounter (statuses as of 10/31/2024) Resolved Problems Problem Noted Date Diagnosed Date Resolved Date COPD, severity to be determined 11/21/2017 05/28/2020 Overview: Per COPD GOLD Classification HTN, goal below 130/80 01/20/201701/18 Screening for prostate cancer 06/23/2006 03/26/2009 Overview (03/26/2009): Resolved per Screening Diagnosis Protocol #6 Labyrinthitis, unspecified 0 06/23/2006 Labyrinthitis, unspecified 0 07/26/2018 documented as of this encounter (statuses as of 10/31/2024) Immunizations Name Administration Dates Next Due COVID-19 mRNA, LNP-s, No Pre serve, 2-Dose Series (CoupFlip) 01/22/2021,01/01/2021 PPD 09/19/2020 Pneumococcal Conjugate Vacc, 13 [...] Sign Reading Time Taken Comments Blood Pressure 130/60 10/31/2024 10:17 AM EST Pulse 63 10/31/2024 10:17 AM EST Temperature 35.9 C (96.7 F) 10/31/2024 10:[address] Respiratory Rate 16 10/31/2024 10:17 AM EST Oxygen Saturation 97% 10/31/2024 10:17 AM EST Inhaled Oxygen Concentration - - Weight 83.5 kg (184 lb) 10/31/2024 10:17 AM EST Height - - Body Mass Index 27.17 06/06/2024 7:27 AM EDT documented in this encounter Progress Notes * Felice Muniz MD - 10/31/2024 10:16 AM EST Idris has been coughing up some mucus and voice is getting hoarse. Breathing is tight. He quit smoking a year ago. Denies nausea, vomiting, or diarrhea. No chest pain Health Maintenance addressed. Did get flu shot, RSV. Patient Active Problem List Diagnosis Tobacco use disorder FAMILY HX-GI MALIGNANCY HTN, goal below 140/90 Asymptomatic carotid artery stenosis, right Bradycardia, sinus Dyslipidemia, goal LDL below 70 COPD, group A, by GOLD 2017 classification (HCC) Past Medical History: Diagnosis Date HTN, goal below 130/80 01/20/2017 Hypercholesteremia 05/24/2017 Labyrinthitis, unspecified 1012/06 started 01/2006 Past Surgical History: Procedure Laterality Date COLONOSCOPY, DIAGNOSTIC (RECTUM) 10/24/2016 adenomatous polyp, diverticulosis, repeat 5 yrs/COLONOSCOPY FLEXIBLE PROXIMAL DIAGNOSTIC performed by Paul Hogue MD at [facility] COLONOSCOPY, DIAGNOSTIC (RECTUM) 02/24/2022 benign adenomatous polyp, diverticulosis, repeat 2 yrs / COLONOSCOPY FLEXIBLE PROXIMAL DIAGNOSTIC performed by Radha Cox MD at [facility] COLONOSCOPY, DIAGNOSTIC (RECTUM) N/A 06/06/2024 hemorrhoids/moderate diverticulosis/biopsies show adenomatous and hyperplastic polyps/recall 5 years/Colonoscopy COLONOSCOPY, DIAGNOSTIC (RECTUM) 06/06/2024 COLONOSCOPY FLEXIBLE PROXIMAL DIAGNOSTIC performed by Leighann Karimi DO at [facility] COLONOSCOPY, GI REFERRAL OP 1995 DENTAL SURGERY PROCEDURE NEC Dental Surgery Procedure Review of patient's allergies indicates: No Known Allergies Social History Socioeconomic History Marital status: Spouse name: Caryn Number of children: 3 Years of education: Not on file Highest education level: Not on file Occupational History Occupation: heating/pumbing Tobacco Use Smoking status: Former Current packs/day: 0.00 Average packs/day: 1.5 packs/day for 30.0 years (45.0 ttl pk-yrs) Types: Cigarettes Start date: 06/17/1993 Quit date: 06/17/2023 Years since quittin.3 Smokeless tobacco: Never Tobacco comments: 2 packs a day, for past 50 years off and on, quit 07/14/2016 Smokes up to 1 ppd as of 03/16/23 Quit 06/17/23 Vaping Use Vaping status: Never Used Substance and Sexual Activity Alcohol use: No Comment: /Quit 03/18 before 6 pack 4-5 x week Drug use: No Sexual activity: Yes Partners: Female Other Topics Concern Service No Blood Transfusions No Caffeine Concern Not Asked Occupational Exposure Not Asked Hobby Hazards Not Asked Sleep Concern Not Asked Stress Concern Not Asked Weight Concern Not Asked Special Diet Not Asked Back Care Not Asked Exercise Not Asked Bike Helmet Not Asked Seat Belt Yes Self-Exams Not Asked Social History Narrative Not on file Social Needs Financial Resource Strain: Low Risk (01/22/2024) Financial Resource Strain Do you have any trouble paying for your medications, or do you think you might in the future? (Adult - for ages 18 years and over): No Does your family have trouble paying for medicine? (Household - for ages 0-17 years): Not on file Food Insecurity: No Food Insecurity (01/22/2024) Food Insecurity Do you need food for this week? (Adult - for ages 18 years and over): No Are you able to get enough food for your family? (Household - for ages 0-17 years): Not on file Does your family need food this week? (Household - for ages 0-17 years): Not on file Do you always have enough food for your family? (Household - for ages 0-17 years): Not on file Transportation Needs: No Transportation Needs (01/22/2024) Transportation Needs Do you have trouble getting a ride to medical visits or work? (Adult - for ages 18 years and over):Never True Does your family have a hard time getting a ride to doctors visits? (Household - for ages 0-17 years): Not on file Has lack of transportation kept you from medical appointments, meetings, work, or from getting things needed for daily living? Check all that apply. (Adult - for ages 18 years and over): Not on file Do you (or your family) have trouble finding or paying for a ride (transportation)? (Household - for ages 0-17 years): Not on file Social Connections: Socially Integrated (01/22/2024) Social Connections How often do you feel lonely or isolated from those around you? (Adult - for ages 18 years and over): Rarely Housing Stability: Low Risk (01/22/2024) Housing Stability Do you currently live in a fpc or have no steady place to sleep at night? (Adult - for ages 18 years and over): No Do you think you are at risk of becoming homeless? (Adult - for ages 18 years and over): No Does your family worry about paying for your home or becoming homeless? (Household - for ages 0-17 years): Not on file Are you homeless or worried that you might be in the future? (Adult - for ages 18 years and over): Not on file Are you (or your family) homeless or worried that you might be in the future? (Household - for ages0-17 years): Not on file Current Outpatient Medications Medication Sig Dispense Refill [...] IN THE MORNING 90 Tablet 3 Nystatin 665286 UNIT/GM External Ointment apply 1 application topically twice a day to affected area as needed 30 g 2 Triamcinolone Acetonide 0.1 % External Ointment (Aristocort) apply 1 application topically twice a day to affected area as needed 30 g 2 Zoster Vac Recomb Adjuvanted 50 MCG/0.5ML Intramuscular Suspension Reconstituted (Shingrix) inject into a muscle as directed 1 Each 0 Abrysvo 120 MCG/0.5ML Intramuscular Solution Reconstituted (RSV Pre-Fusion F A&B Vac Rcmb) Inject into a large muscle. 1 Each 0 Fluzone High-Dose 0.5 ML Suspension Prefilled Syringe Inject into a large muscle. 0.5 mL 0 No current facility-administered medications for this visit. Immunization History Administered Date(s) Administered COVID-19 mRNA, LNP-s, No Preserve, 2-Dose Series (CoupFlip) 01/01/2021, 01/22/2021 PPD 09/19/2020 Pneumococcal Conjugate Vacc, 13 Valent (Prevnar) 2016 Pneumococcal Polysaccharide PPV23 (Pneumovax) 08/17/2017 RSV Vac., Bivalent, Perfusion F, Pf,0.5 Ml (Abrysvo) 07/02/2024 Season Influenza, Quad, PF, Adjuvanted, 65+ Yrs, IM (FLUAD) 09/19/2020 Seasonal Influenza, High Dose, Trivalent, PF, IM (Fluzone HD) 09/02/2024 Seasonal Influenza, PF, 6 M & above, IM , (FluLaval or Fluzone) 08/17/2017, 07/26/2018 Seasonal Influenza, Quadrivalent Hd (Fluzone Hd) 08/29/2022, 09/25/2023 Seasonal Influenza, Quadrivalent, No Preserve, IM 2016 Seasonal Influenza, Trivalent, Adjuvanted, 65+ YRS, PF, (Fluad) 08/13/2019 TDAP (age 10 and older)(Boostrix) 09/25/2016 Zoster Vaccine Recombinant (Shingrix) 01/23/2024, 06/25/2024 O: Blood pressure 130/60, pulse 63, temperature 96.7 F (35.9 C), temperature source Tympanic, resp. rate 16, weight 184 lb (83.5 kg), SpO2 97%. Lungs are tight, not quite wheezing. Heart regular A: Bronchitis, complicated (Primary) - Amoxicillin-Pot Clavulanate 875-125 MG Oral Tablet (Augmentin); Take 1 Tablet by mouth in the morning and 1 Tablet before bedtime. Do all this for 10 days. - predniSONE 20 MG Oral Tablet (Deltasone); two pills daily with food for 5 days, then one daily with food Follow Up: Return if symptoms worsen or fail to improve. documented in this encounter Plan of Treatment Upcoming Encounters Date Type Department Care Team (Late st Contact Info) Description 12/31/2024 8:20 AM EST Office Visit Family Practice [facility] [address] [place] [address] Carmela Llanos, [address] [place] [address] 03/24/2025 9:30 AM EDT Office Visit Cardiology, [facility] [address] [place] [address] Ghassan Bland MD [address] [place] [address] Scheduled Procedures Name Priority Associated Diagnoses Date/Ti me COLONOSCOPY FLEXIBLE PROXIMA L DIAGNOSTIC Recall History of colonic polyps Health Maintenance Due Date Last Done Comments Alpha-1 Antitrypsin 1963 Adult Wellness Visit 2010 *COPD SEVERITY VERIFIED BY PFT 11/25/2017 GFR 03/22/2024 03/22/2023, 05/13, 03/22/2021, Additional history exists COVID-19 Vaccine ( season) 2024 01/22/2021, 01/01/2021 Depression Screening 05/08/2025 [...] 01/23/2024 Influenza Vaccine (FLU shot) Completed 09/02/2024, 09/25/2023, 08/29/2022, Additional history exists HPV (Gardasil) Vaccine Aged [...] Bronchitis, not specified as acute or chronic documented in this encounter Care Teams Plant Operations Engineer Relationship Specialty Start Date End Date Carmela Llanos DO [address] [place] [address] PCP - General Family Medicine 10/04/16 documented as of this encounter
--- OUTSIDE RECORDS SUMMARY | 2024-12-05 02:13 | External Medical Summary | Summary of Care ---
Author Name Unknown Organization [facility] Address [address] [place] [address] Phone [phone] Care Team Providers Care Belt Press Operator Name Role Phone Carmela Llanos DO Primary Care Provider Reason for Visit * Reason Onset Date Comments Medication Administration 09/02/2024 Flu an d/or Pneumo Inj Encounter Details Date Type Department Care Team (Late st Contact Info) Description 09/02/2024 11:30 AM EDT [facility] [address] [facility] [place] [address] Nurse Dominic Aranda [facility] [address] [facility] [address] Need for prophylactic vaccination and inoculation against influenza* Allergies No known active allergiesdocumented as of this encounter (statuses as of 09/02/2024) Medications Medication Sig Dispensed Refills Start Date [...] MORNING 90 Tablet 3 02/28/2024 Active Nystatin 822413 UNIT/GM External Ointment apply 1 application topically twice a day to affected area as needed 30 g 2 02/29/2024 Active Triamcinolone Acetonide 0.1 % External Ointment (Aristocort) apply 1 application topically twice a day to affected area as needed 30 g 2 02/29/2024 Active Fluzone High-Dose 0.5 ML Suspension Prefilled Syringe Inject into a large muscle. 0.5 mL 08/05/2024 Active documented as of this encounter (statuses as of 09/02/2024) Active Problems Problem Noted Date Diagnosed Date COPD, group A, by GOLD 2017 classification 05/25 Overview: Per COPD GOLD Classification Dyslipidemia, goal LDL below 70 05/24/2017 HTN, goal below 140/90 11/23/2016 Asymptomatic carotid artery stenosis, right 11/13 Bradycardia, sinus 11/23/2016 FAMILY HX-GI MALIGNANCY 06/23/2006 Tobacco use disorder 02/27/2006 documented as of this encounter (statuses as of 09/02/2024) Resolved Problems Problem Noted Date Diagnosed Date Resolved Date COPD, severity to be determined 11/21/2017 05/28/2020 Overview: Per COPD GOLD Classification HTN, goal below 130/80 01/20/201701/18 Screening for prostate cancer 06/23/2006 03/26/2009 Overview: Resolved per Screening Diagnosis Protocol #6 Labyrinthitis, unspecified 0 06/23/2006 Labyrinthitis, unspecified 0 07/26/2018 documented as of this encounter (statuses as of 09/02/2024) Immunizations Name Administration Dates Next Due COVID-19 mRNA, LNP-s, No Pre serve, 2-Dose Series (Avedro) 01/22/2021,01/01/2021 PPD 09/19/2020 Pneumococcal Conjugate Vacc, 13 [...] 01/22/2024 Does the household have a re lar source of income? (Household - for ages [...] on file documented as of this encounter Progress Notes * Terri Rees LPN - 09/02/2024 10:38 AM EDT PRE - ADMINISTRATION DOCUMENTATION Are you experiencing any cold symptoms or fever? No Have you had Guillain-[place] Syndrome (an illness that causes paralysis) within the last 6 weeks? No Have you had the flu shot in the past? YES Have you ever had a reaction to the flu shot? Yes Terri Rees LPN, 09/02/2024 10:38 AM Immunization Administration Documentation Time Out Procedure Performed: Yes Patient Identified (Ask Name/Date of ): Yes Does the patient have a fever greater than 101 degrees today? No Patient allergic to latex? No VFC Stock: No Immunization(s) verified: Yes, Immunization Name: Flu, VIS Sheet(s) given: Yes Verified Side and Site: Yes Verified Shot(s) with Parent(s)/Patient: Yes documented in this encounter Plan of Treatment Upcoming Encounters Date Type Department Care Team (Late st Contact Info) Description 12/31/2024 8:20 AM EST Office Visit Family Practice [facility] [address] [place] [address] Carmela Llanos DO [address] [place] [address] 03/24/2025 9:30 AM EDT Office Visit Cardiology, [facility] [address] [place] [address] Ghassan Bland MD [address] [place] [address] Scheduled Procedures Name Priority Associated Diagnoses Date/Ti [...] as of this encounter Visit Diagnoses Diagnosis Need for prophylactic vaccination and inoculation against influenza- Primary documented in this encounter Care Teams Belt Press Operator Relationship Specialty Start Date End Date Carmela Llanos DO [address] [place] [address] PCP - General Family Medicine 10/04/16 documented as of this encounter
--- OUTSIDE RECORDS SUMMARY | 2024-12-05 02:13 | External Medical Summary | Summary of Care ---
Author Name Unknown Organization [facility] Address [address] [place] [address] Phone [phone] Care Team Providers Care Insurance Agency Manager Name Role Phone Carmela Llanos DO Primary Care Provider Reason for Visit * Reason Comments Physical-Exam Yearly exam, Encounter Details Date Type Department Care Team (Latest Contact Info) Description 06/19/2024 6:00 PM EDT Office Visit Family Practice [facility] [address] [place] [address] Carmela Llanos DO [address] [place] [address] Well adult exam*; Dyslipidemia, goal LDL below 70; HTN, goal below 140/90; COPD, group A, by GOLD 2017 classification (HCC); Asymptomatic carotid artery stenosis, right; Risk and functional assessment Allergies No known active allergiesdocumented as of this encounter (statuses as of 06/21/2024) Medications Medication Sig Dispensed Refills Start Date End Date Status Aspirin 81 MG Tablet Take 1 Tablet by mouth every evening. 34 Tab 5 10/28/2016 Active Lisinopril 20 MG Oral Tablet (Prinivil)Indicati ons:Essential hypertension with goal blood pressure less than 130/80 Take 1 Tablet by mouth daily. 90 Tablet 3 01/23/2024 Active amLODIPine Besylate 2.5 MG Oral Tablet (Norvasc)Indicatio ns:Essential hypertension with goal blood pressure less than 130/80 Take 1 Tablet by mouth at bedtime. 90 Tablet 3 01/23/2024 Active Atorvastatin Calcium 20 MG Oral Tablet (Lipitor)Indicatio ns:Hypercholestere deanne TAKE 1 TABLET BY MOUTH ONCE DAILY IN THE MORNING 90 Tablet 3 02/28/2024 Active Nystatin 163216 UNIT/GM External Ointment apply 1 application topically twice a day to affected area as needed 30 g 2 02/29/2024 Active Triamcinolone Acetonide 0.1 % External Ointment (Aristocort) apply 1 application topically twice a day to affected area as needed 30 g 2 02/29/2024 Active predniSONE 20 MG Oral Tablet (Deltasone)Indicat ions:Rash and nonspecific skin eruption Take 3 tablets by mouth for 3 days, then 2 tabs for 3 days, then 1 tab for 3 days, then 1/2 tab for 3 days 20 Tablet 05/08/2024 4 Discontinue d(Medicatio n List Clean Up) documented as of this encounter (statuses as of 06/21/2024) Active Problems Problem Noted Date Diagnosed Date COPD, group A, by GOLD 2017 classification 05/25 Overview: Per COPD GOLD Classification Dyslipidemia, goal LDL below 70 05/24/2017 HTN, goal below 140/90 11/23/2016 Asymptomatic carotid artery stenosis, right 11/13 Bradycardia, sinus 11/23/2016 FAMILY HX-GI MALIGNANCY 06/23/2006 Tobacco use disorder 02/27/2006 documented as of this encounter (statuses as of 06/21/2024) Resolved Problems Problem Noted Date Diagnosed Date Resolved Date COPD, severity to be determined 11/21/2017 05/28/2020 Overview: Per COPD GOLD Classification HTN, goal below 130/80 01/20/201701/18 Screening for prostate cancer 06/23/2006 03/26/2009 Overview: Resolved per Screening Diagnosis Protocol #6 Labyrinthitis, unspecified 0 06/23/2006 Labyrinthitis, unspecified 0 07/26/2018 documented as of this encounter (statuses as of 06/21/2024) Immunizations Name Administration Dates Next Due COVID-19 mRNA, LNP-s, No Pre serve, 2-Dose Series (Pfizer) 01/22/2021,01/01/2021 PPD 09/19/2020 Pneumococcal Conjugate Vacc, 13 [...] Sign Reading Time Taken Comments Blood Pressure 128/68 06/19/2024 5:52 PM EDT Pulse 72 06/19/2024 5:52 PM EDT Temperature 36.1 C (97 F) 06/19/2024 5:52 PM EDT Respiratory Rate 20 06/19/2024 5:52 PM EDT Oxygen Saturation 95% 06/19/2024 5:52 PM EDT Inhaled Oxygen Concentration - - Weight 83 kg (183 lb) 06/19/2024 5:52 PM EDT Height - - Body Mass Index 27.02 06/06/2024 7:27 AM EDT documented in this encounter Patient Instructions * Patient Instructions* Kirti Briggs RN - 06/19/2024 5:52 PM EDT Patient Instructions - Fall Prevention (This education is for all patients over 65 regardless of symptoms) Remember to take your current medications as prescribed. In order to prevent falls, you are encouraged to: Exercise Utilize assistive/adaptive devices Avoid multifocal lenses when walking Avoid hazards in home Maintain a regular toileting schedule Any questions please contact our office. Preventing Falls in the Home (This education is for all patients over 65 regardless of symptoms) As you get older, falls are more likely. Thats because your reaction time slows. Your muscles and joints may also get stiffer, making them less flexible. Illness, medications, and vision changes can also affect your balance. A fall could leave you unable to live on your own. To make your home safer, follow these tips: Floors Put nonskid pads under area rugs Remove throw rugs Replace worn floor coverings Tack carpets firmly to each step on carpeted stairs. Put nonskid strips on the edges of uncarpeted stairs Keep floors and stairs free of clutter and cords Arrange furniture so there are clear pathways Clean up any spills right away Bathrooms Install grab bars in the tub or shower Apply nonskid strips or put a nonskid rubber mat in the tub or shower Sit on a bath chair to bathe Use bathmats with nonskid backing Lighting Keep a flashlight in each room Put a nightlight along the pathway between the bedroom and the bathroom [employer] Patient Education Copyright 2008 - 2010 [employer] except where otherwise noted Preventing Falls: Exercises to Improve Balance, Flexibility, Strength, and Staying Power (This education is for all patients over 65 regardless of symptoms) Certain types of exercises may help make you less likely to fall. Try the ones below. Or do other exercises that your healthcare provider suggests. Depending on your health, you may need to start slowly. Dont let that stop you. Even small amounts of exercise can help you. Be sure to talk to yourhealthcare provider before starting any exercise program. Improve Balance Many types of exercise can help improve balance. [place] chi and yoga are good examples. Heres another one to try. You can do it anytime and almost anywhere. Stand next to a counter or solid support. Push yourself up onto your tiptoes. Hold for 5 seconds. If you start to lose your balance, hold on to the counter. Rest and repeat 5 times. Work up to holding for 20 to 30 seconds, if you can. Increase Flexibility Being more flexible makes it easier for you to move around safely. Try exercises like the seated hamstring stretch. Sit in a chair and put one foot on a stool. Straighten your leg and reach with both hands down either side of your leg. Reach as far down your leg as you can. Hold for about 20 seconds. Go back to the starting position. Then repeat 5 times. Switch legs. Build Strength Resistance exercises help build strength. You can do them without equipment. Or you can use weights, elastic bands, or special machines. One such exercise is called the biceps curl. You can hold a 1 pound weight or even a can of soup. Do this exercise at least 3 times a week. Strive for everyday. Sit up straight in a chair. Keep your elbow close to your body and your wrist straight. Bend your arm, moving your hand up to your shoulder. Then slowly lower your arm. Repeat 5 times. Switch to the other arm. Build Your Staying Power Aerobic exercises make your heart and lungs stronger so you can keep moving longer. Walking and swimming are two of the best types of exercises you can do. Using a stationary bike is great, too. Find an aerobic exercise that you enjoy. Start slowly and build up. Even 5 minutes is helpful. Aimfor a goal of 30 minutes, at least 3 times a week. You dont have to do 30 minutes in one session. Break it up and walk a little throughout the day. More Helpful Tips Start easy. Slowly work up to doing more. Talk with your healthcare provider about the best exercises for you. Call senior centers or health clubs about exercise programs. If needed, have a family member watch you walk every so often to check your stability. Exercise with a friend. Choose an activity you both enjoy. Try exercises that you can do anytime, anywhere. Here are two examples. Have someone with you when you first try these: Practice walking by placing one foot right in front of the other. Stand up and sit down 10 times. Repeat this throughout the day. [employer] Patient Education Copyright 2008 [employer] except where otherwise noted. Preventing Falls: Moving Safely Using a Cane or Walker (This education is for all patients over 65 regardless of symptoms) Keep the cane away from your feet so you dont trip. A walking aid, such as a cane or walker, can help you stay more independent and avoid falls. Remember to keep your walking aid within easy reach when youre in a chair or in bed. And learn how to use it safely so you dont injure yourself. Using a Cane If you have a stronger side, hold the cane on that side. Get your balance. Move the cane and your weaker leg forward. Support your weight on both the cane and your weaker side. Step with your stronger leg. Start again from step 1. If youre using a folding walker, be sure you know how to lock it open. Check that its locked open before each use. Using a Walker Roll the walker (or lift it, if youre using one without wheels) forward about 12 inches. Step forward with your weaker leg first. Use the walker to help keep your balance. Bring your other foot forward to the center of the walker. Start again from step 1. Helpful Tips Check with your healthcare provider about the right walking aid to use. Ask about a walker with a seat attached. Check the tips of your cane or walker to make sure they have nonskid covers. Move slowly from room to room. Dont porter. Sit down to get dressed. Use a cary pack or backpack to keep your hands free. Get help for jobs that mean climbing, even on a stepstool. [employer] Patient Education Copyright 2008 - 2010 [employer] except where otherwise noted. Treating Urinary Incontinence in Men (This education is for all patients over 65 regardless of symptoms) You can't always control the release of urine. You may leak urine. Or you may not be able to hold your urine until you can get to a bathroom. This is called urinary incontinence. The problem can be managed. Talk to your doctor about your treatment options. Taking Medications Prescription medications may help you. They may: Help the sphincter to work better. (This is the muscle that closes to keep urine from leaking out of the bladder.) Help stop the bladder from dominic too often to push urine out. Help the bladder muscles contract with more force. Help relax the sphincter muscle and allow urine to flow more freely. Making Changes to Your Routine Certain changes in your daily routine may help. These include: Avoiding caffeine and alcohol. Using timed voiding. This is following a schedule for drinking fluids and urinating. Doing Kegel exercises daily. These exercises involve tightening the muscles in your sphincter and around your bladder to help strengthen them. Your doctor can explain how to do them. Using a Catheter A catheter is a narrow tube that is inserted through the urethra into the bladder. It drains urine.A condom catheter covers the penis. It channels urine into a collection bag. It is worn most of thetime. Intermittent catheterization means inserting a catheter to drain the bladder, then removing it. This is done on a regular schedule. Having Surgery If other options don't work, surgery may be recommended. If surgery is an option, your healthcare provider can discuss it with you and explain its risks and benefits. Healing After Prostate Surgery Surgery on the prostate gland can cause incontinence. Most often, the incontinence is only for a short time. It clears up when healing is complete. Very rarely, prostate surgery can result in permanent incontinence. documented in this encounter Progress Notes * Carmela Llanos, - 06/19/2024 6:13 PM EDT Subjective: Idris Goodman is a 78 year old male. Chief Complaint Patient presents with Physical-Exam Yearly exam, HPI: Pt presents for physical today. No longer working because of tremor and decreased strength. Does keep busy mowing, miscellaneous activities. Denies feeling depressed. Quit smoking, stays social. Gets SOB occasionally but it doesn't last. He declines inhalers since it doesn't bother him too much. He continues to abstain from cigarettes. PHM: Patient Active Problem List Diagnosis Tobacco use disorder FAMILY HX-GI MALIGNANCY HTN, goal below 140/90 Asymptomatic carotid artery stenosis, right Bradycardia, sinus Dyslipidemia, goal LDL below 70 COPD, group A, by GOLD 2017 classification (HCC) Current Outpatient Medications Medication Sig Dispense Refill [...] IN THE MORNING 90 Tablet 3 Nystatin 968396 UNIT/GM External Ointment apply 1 application topically twice a day to affected area as needed 30 g 2 Triamcinolone Acetonide 0.1 % External Ointment (Aristocort) apply 1 application topically twice a day to affected area as needed 30 g 2 No current facility-administered medications for this visit. Past Medical History: Diagnosis Date HTN, goal below 130/80 01/20/2017 Hypercholesteremia 05/24/2017 Labyrinthitis, unspecified 1012/06 started 01/2006 Past Surgical History: Procedure Laterality Date COLONOSCOPY, DIAGNOSTIC (RECTUM) 10/24/2016 adenomatous polyp, diverticulosis, repeat 5 yrs/COLONOSCOPY FLEXIBLE PROXIMAL DIAGNOSTIC performed by Paul Hogue MD at ENDOSCOPY [facility] COLONOSCOPY, DIAGNOSTIC (RECTUM) 02/24/2022 benign adenomatous polyp, diverticulosis, repeat 2 yrs / COLONOSCOPY FLEXIBLE PROXIMAL DIAGNOSTIC performed by Radha Cox MD at ENDOSCOPY [facility] COLONOSCOPY, DIAGNOSTIC (RECTUM) N/A 06/06/2024 hemorrhoids/moderate diverticulosis/biopsies show adenomatous and hyperplastic polyps/recall 5 years/Colonoscopy COLONOSCOPY, DIAGNOSTIC (RECTUM) 06/06/2024 COLONOSCOPY FLEXIBLE PROXIMAL DIAGNOSTIC performed by Leighann Karimi DO at ENDOSCOPY [facility] COLONOSCOPY, GI REFERRAL OP 1995 DENTAL SURGERY PROCEDURE NEC Dental Surgery Procedure Review of patient's allergies indicates: No Known Allergies Objective: BP 128/68 (BP Site: Left Arm, BP Position: Sitting, BP Cuff Size: Regular) | Pulse 72 | Temp 36.1 C (97 F) (Tympanic) | Resp 20 | Wt 83 kg (183 lb) | SpO2 95% | BMI 27.02 kg/m | BSA 2.01 m Review of Systems: As per HPI, all other ROS neg. Physical Exam: General: alert, healthy, no distress, well nourished and well developed Head: Normocephalic, No masses, lesions, tenderness or abnormalities Ears: External ears normal, Canals clear, TM's Normal Nose: no mucosal erythema, no mucosal edema, no purulent discharge, no septal hematoma Oropharynx: no exudate, no erythema, lips, buccal mucosa, and tongue normal and mucous membranes are moist Neck: supple, no adenopathy, thyroid normal size, non-tender, without nodularity Heart: regular rate & rhythm, no murmurs and no gallops Lungs: chest symmetric with normal AP diameter, no chest deformities noted, lungs clear to auscultation Abdomen: abdomen soft, non-tender, normal bowel sounds and no masses or organomegaly Extremities: no joint deformities, effusion, or inflammation, no edema, no clubbing, no cyanosis Well adult exam (Primary) all appropriate HM items addressed Including genitourinary (pap, mammo, psa), colon cancer screening and immunizations as indicated by patient sex, age and history Dyslipidemia, goal LDL below 70 Cont statin HTN, goal below 140/90 - RENAL FUNCTION PANEL; Future; Expected date: 06/19/2024 - COMPREHENSIVE METABOLIC PANEL; Future; Expected date: 06/19/2024 Bp stable, cont amlodipine, lisnopril COPD, group A, by GOLD 2017 classification (HCC) Stable Asymptomatic carotid artery stenosis, right Cardio monitoring carotids Cont statin/ASA Risk and functional assessment Follow up: in 6 month(s). Carmela Llanos DO documented in this encounter Plan of Treatment Upcoming Encounters Date Type Department Care Team (Late st Contact Info) Description 08/08/2024 1:00 PM EDT Office Visit Cardiology, [facility] [address] [address] Ghassan Bland MD [address] [place] [address] 12/31/2024 8:20 AM EST Office Visit Family Practice [facility] [address] [place] [address] Carmela Llanos DO [address] [place] [address] Scheduled Orders Name Type Priority Associated Diagnoses Orde r Schedule RENAL FUNCTION PANEL Lab Routine HTN, goal below 140/90 Expected: 06/19/2024 (Approximate), Expires: 06/19/2025 COMPREHENSIVE METABOLIC PANEL Lab Routine HTN, goal below 140/90 Expected: 06/19/2024 (Approximate), Expires: 06/19/2025 Scheduled Procedures Name Priority Associated Diagnoses Date/Ti [...] as of this encounter Visit Diagnoses Diagnosis Well adult exam- Primary Routine general medical examination at a health care facility Dyslipidemia, goal LDL below 70 Other and unspecified hyperlipidemia HTN, goal below 140/90 Unspecified essential hypertension COPD, group A, by GOLD 2017 classification (HCC) Asymptomatic carotid artery stenosis, right Risk and functional assessment Screening for unspecified condition documented in this encounter Care Teams Insurance Agency Manager Relationship Specialty Start Date End Date Carmela Llanos DO [address] [place] [address] PCP - General Family Medicine 10/04/16 documented as of this encounter"
--- OUTSIDE RECORDS SUMMARY | 2024-12-05 02:13 | External Medical Summary | Summary of Care ---
Author Name Unknown Organization [facility] Address [address] [place] [address] Phone [phone] Care Team Providers Care Fleet Manager/Dispatch Name Role Phone Carmela Llanos DO Primary Care Provider [phone] Reason for Referral * Evaluate & Treat - Unlimited Visits (Within 10 days (routine)) - Authorized Specialty Diagnoses / Procedures Referred By Calyton bustos Referred To Contact Dermatology Diagnoses Leukoplakia of penis Chris Sims MD [address] [place] [address] Referral ID Status Reason Start Date Expiration Date Visits Requested Visits Authorized [id number] Authorized Specialty Services Required 06/09/[phone] Question Answer Referral Priority Within 10 days (routine) Where should this appointment be scheduled? [facility] Are you referring the patient for Mohs Surgery and have a current positive skin cancer biopsy result? No What is the reason for the patient referral? Rash/Skin Check/Eval of Lesion or Mole Comments Notes/ref scanned in [facility] Encounter Details Date Type Department Care Team (Late st Contact Info) Description 06/09/2024 Orders Only Access [facility], [address] Ext *DO NOT REMOVE THIS DEPARTMENT* [place] [address] Request, External Referral Leukoplakia of penis* Allergies No known active allergiesdocumented as of this encounter (statuses as of 06/09/2024) Medications Medication Sig Dispensed Refills Start Date [...] MORNING 90 Tablet 3 02/28/2024 Active Nystatin 087236 UNIT/GM External Ointment apply 1 application topically twice a day to affected area as needed 30 g 2 02/29/2024 Active Triamcinolone Acetonide 0.1 % External Ointment (Aristocort) apply 1 application topically twice a day to affected area as needed 30 g 2 02/29/2024 Active predniSONE 20 MG Oral Tablet (Deltasone)Indicatio ns:Rash and nonspecific skin eruption Take 3 tablets by mouth for 3 days, then 2 tabs for 3 days, then 1 tab for 3 days, then 1/2 tab for 3 days 20 Tablet 05/08/2024 Active Additional Information Patient not taking.Reported on 05/29/2024 documented as of this encounter (statuses as of 06/09/2024) Active Problems Problem Noted Date Diagnosed Date COPD, group A, by GOLD 2017 classification 05/25 Overview: Per COPD GOLD Classification Dyslipidemia, goal LDL below 70 05/24/2017 HTN, goal below 140/90 11/23/2016 Asymptomatic carotid artery stenosis, right 11/13 Bradycardia, sinus 11/23/2016 FAMILY HX-GI MALIGNANCY 06/23/2006 Tobacco use disorder 02/27/2006 documented as of this encounter (statuses as of 06/09/2024) Resolved Problems Problem Noted Date Diagnosed Date Resolved Date COPD, severity to be determined 11/21/2017 05/28/2020 Overview: Per COPD GOLD Classification HTN, goal below 130/80 01/20/201701/18 Screening for prostate cancer 06/23/2006 03/26/2009 Overview: Resolved per Screening Diagnosis Protocol #6 Labyrinthitis, unspecified 0 06/23/2006 Labyrinthitis, unspecified 0 07/26/2018 documented as of this encounter (statuses as of 06/09/2024) Immunizations Name Administration Dates Next Due COVID-19 [...] No 01/22/2024 Does the household have a [facility] source of income? (Household - for ages [...] Care Team (Late st Contact Info) Description 06/19/2024 6:00 PM EDT Office Visit [facility] [address] [place] [address] Carmela Llanos, DO [address] [place] [address] 08/08/2024 1:00 PM EDT Office Visit Cardiology, [facility] [address] [place] [address] Ghassan Bland MD [address] [place] [address] 12/31/2024 8:20 AM EST Office Visit [facility] [address] [place] [address] Carmela Llanos, DO [address] [place] [address] Scheduled Procedures Name Priority Associated Diagnoses Date/Ti me COLONOSCOPY FLEXIBLE PROXIMA L DIAGNOSTIC Recall History of colonic polyps Scheduled Referrals Name Type Priority Associated Diagnoses Orde r Schedule DERMATOLOGY REFERRAL OP Referral Within 10 days (routine) Leukoplakia of penis Ordered: 06/09/2024 Health Maintenance Due Date Last Done Comments Alpha-1 Antitrypsin 1963 Hepatitis C Screening 1963 *COPD SEVERITY VERIFIED BY PFT 11/25/2017 COVID-19 Vaccine ( - 2022- season) 2023 01/22/2021, 01/01/2021 Zoster Vaccines (2 of 2) 03/19/2024 01/23/2024 GFR 03/22/2024 03/22/2023, 05/13, 03/22/2021, Additional history exists *CXR OR CT FOR COPD EVER 05/26/2024 Influenza Vaccine (FLU shot) (#1) 2024 09/25/2023, [...] 04/05/2022 , 03/22/2021, 03/23/2020, Additional history exists *BASELINE EKG FOR HTN Completed 09/25/2023 , 08/29/2022, 03/10/2021, Additional history exists RETIRED - COLONOSCOPY-EVERY 2 [...] as of this encounter Visit Diagnoses Diagnosis Leukoplakia of penis- Primary documented in this encounter Care Teams Fleet Manager/Dispatch Relationship Specialty Start Date End Date Carmela Llanos DO [address] [place] [address] PCP - General Family Medicine 10/04/16 documented as of this encounter
[2024-12-05] MEDS ORDERED: ACETAMINOPHEN 325 MG TAB PO PRN (02:17)
[2024-12-05] MEDS ORDERED: PROMETHAZINE 6.25 MG/50.25 ML BAG IV PRN (02:17)
[2024-12-05] MEDS ORDERED: traMADol HCL 50 MG TABLET PO PRN (02:20)
[2024-12-05] MEDS: FAMOTIDINE 20MG IV PUSH 20 MG/5 ML SYR IV STA (02:49)
[2024-12-05] MEDS: methylPREDNISolone 125 MG/2 ML VIAL IV STA (02:50)
[2024-12-05] MEDS: PROMETHAZINE 6.25 MG/50.25 ML BAG IV STA (02:51)
[2024-12-05] MEDS: CARBAMIDE PEROXIDE 6.5% 15 ML BTL OTR SCH (02:53)
[2024-12-05] MEDS: NSS + 20MEQ KCL 20 MEQ/1,000 ML BAG IV ONE (03:44)
[2024-12-05] MEDS: MAGNESIUM SULFATE / D5W 1 GM/100 ML BAG IV ONE (03:44)
[2024-12-05] MEDS: ALBUT/IPRATROP 3MG/0.5MG NEB 3 ML VIAL NEB SCH (07:04)
[2024-12-05 07:27] LABS: Estimated Average Glucose 137 mg/dl; Hemoglobin A1C 6.4 % (4.5-5.6)
[2024-12-05 07:43] LABS: Hematocrit (blood only) 43.6 % (42.0-52.0); Hemoglobin 14.8 g/dl (14.0-18.0); Mean Corpuscular Hemoglobin 27.9 pg (25.0-34.0); Mean Corpuscular Hgb Conc 33.9 g/dL (32.0-36.0); Mean Corpuscular Volume 82.3 fL (80.0-100.0); Mean Platelet Volume 9.5 fL (9.4-12.4); Platelet Count 192 K/uL (130-400); RDW Coefficient of Variation 14.3 % (11.5-14.5); RDW Standard Deviation 42.6 fL (36.4-46.3); White Blood Count 5.76 K/ul (4.8-10.8)
[2024-12-05 07:59] LABS: Chol HDL Ratio 3.2 (0-5); Creatinine Clr Calc Pharmacy 65.4 ml/min; Potassium 4.3 mmol/L (3.5-5.1)
[2024-12-05 08:08] LABS: ALC (manual) 0.17 K/uL (1.2-3.4); ANC (manual) 4.78 K/uL (1.4-6.5); Lymphocytes # (manual) 0.17 K/uL (1.2-3.4); Lymphocytes % (manual) 3 %; Metamyelocytes % (manual) 7 %; Monocytes # (manual) 0.17 K/uL (0.11-0.59); Monocytes % (manual) 3 %; Myelocytes # (manual) 0.23 K/uL (0-0); Myelocytes % (manual) 4 %; Neutrophils # (manual) 4.78 K/uL (1.40-6.50); Neutrophils % (manual) 83 %
[2024-12-05] MEDS: ENOXAPARIN INJ 40 MG/0.4 ML SYR SQ SCH (08:42)
[2024-12-05] MEDS: FAMOTIDINE 10 MG TABLET PO SCH (08:43)
--- NOTE | 2024-12-05 10:02 | Ultrasound Report ---
US carotid doppler BI CLINICAL HISTORY: 79 years-old Male with stroke. Acute strokelike symptoms COMPARISON: None TECHNIQUE: Multiple real time sonographic images of the carotid bifurcations were obtained assessing aldrcih scale, color Doppler and spectral wave form appearance FINDINGS: RIGHT CAROTID: The peak systolic velocity measured within the right ICA is 134 cm/sec within the mid ICA. The end diastolic velocity measured 31 cm/sec. The ICA to CCA ratio measured 1.5 which correl ates with a stenosis of 50-69%. Moderate to severe atherosclerosis of the carotid bulb. LEFT CAROTID: The peak systolic velocity measured within the left ICA is 88 cm/sec. The end diastol ic velocity measured 25 cm/sec. The ICA to CCA ratio measured 1.0 which correlates with a stenosis of 0-50%. Moderate atherosclerosis of the carotid bulb. There is normal antegrade vertebral flow bilaterally. IMPRESSION: 1. Atherosclerosis results in 50-69% stenosis of the right ICA. 2. No hemodynamically significant stenosis of the left internal carotid artery. ACT 112: Negative or not required by law. The above report was generated using voice recognition software. It may contain grammatical, syntax o r spelling errors. Electronically signed by: Louie Hernández M.D. 12/05/2024 10:00 AM
--- NOTE | 2024-12-05 12:38 | Hospitalist Progress Note ---
Date of Service December 05, 2024 Assessment & Plan (1) SOB (shortness of breath): Plan Pt is an 79yoM with PMHx significant for hypertension, hyperlipidemia, chronic bradycardia, COPD, PVD, BPH status post surgery, essential tremors, past tobacco abuse who was admitted with an acute COPD Exacerbation. COPD Exacerbation Dyspnea likely protracted COPD exacerbation presented with SOB Chest XRAY unremarkable Chest CTA with no PE Respiratory viral panel negative for flu, covid, rsv Nebs RTC, prednisone course Hold off on additional antibiotic Rx- completed courses of Augmentin and doxycycline Consider pulmonology consult in the AM Continue to monitor Epigastric discomfort with nausea and vomiting Uncontrolled GERD AAA likely secondary to steroid Rx doxycycline Rx possibly contributory Ct abd pelvis unremarkable but does note AAA that will need pcp followup Pepcid for GERD PPI added daily Past CVA/lacunar infarcts Head CT ordered in the ED for headache Notes old infarcts TTE, carotid Dopplers for stroke workup Update lipid profile Check hemoglobin A1c Chronic medical problems: hypertension, slight elevated Chest pain with minimal troponin elevation hyperlipidemia on statin Rx Old lacunar infarcts on CT imaging chronic bradycardia PVD, carotid artery disease as per records BPH status post surgery Steroid-induced hyperglycemia rule out DM SPN left, history pulmonary nodules as per records Impacted cerumen, AD Possible deconditioning past tobacco abuse Diet: Dispo: PT OT eval for further recs DVT prophylaxis. Lovenox subcu Admission and Anticipated Discharge Date Admission Date: December 05, 2024 Subjective Pt was seen while still down in the ED. Stated that his breathing had improved but still coughing up quite a bit of phelgm at that time Review of Systems Review of Systems: All systems reviewed & are unremarkable except as noted in Subjective Physical Exam Physical Exam: General: Alert, oriented. No acute distress Skin: No noted rashes or bruises Psych: Appropriate mood and affect HEENT: NC/AT CV: RRR Resp: Breath sounds decreased bilaterally, no increased effort of breathing Abdomen: Soft, nontender Extremities: No edema in lower extremities bilaterally. Results & Data Results & Data Vital Signs (Past 12 Hours) Vital Signs Pulse Pulse Resp BP BP Pulse Ox Pulse Ox 12/05/24 12:03 71 17 96 12/05/24 08:44 148/78 H 94 12/05/24 08:42 67 21 12/05/24 08:06 54 L 12 12/05/24 07:25 51 L 12/05/24 07:05 53 L 15 95 12/05/24 06:06 54 L 12 93 12/05/24 06:00 107/67 12/05/24 05:57 55 L 12 93 12/05/24 05:29 107/65 12/05/24 05:18 54 L 16 93 12/05/24 05:09 61 15 93 12/05/24 04:57 54 L 15 93 12/05/24 04:42 56 L 14 93 12/05/24 04:30 56 L 16 93 12/05/24 04:21 59 L 17 93 12/05/24 04:12 59 L 23 94 12/05/24 04:00 56 L 22 95 12/05/24 04:00 94 12/05/24 04:00 58 L 16 130/69 98 12/05/24 03:53 56 L 12/05/24 03:52 130/69 12/05/24 03:52 130/69 O2 Del Method O2 Del Method 12/05/24 12:03 Room Air 12/05/24 08:44 12/05/24 08:42 12/05/24 08:06 12/05/24 07:25 12/05/24 07:05 Room Air 12/05/24 06:06 12/05/24 06:00 12/05/24 05:57 12/05/24 05:29 12/05/24 05:18 12/05/24 05:09 12/05/24 04:57 12/05/24 04:42 12/05/24 04:30 12/05/24 04:21 12/05/24 04:12 12/05/24 04:00 12/05/24 04:00 Room Air 12/05/24 04:00 Room Air 12/05/24 03:53 12/05/24 03:52 12/05/24 03:52 Diagnostic Findings Chest X-Ray 12/04/24 20:48 Exam(s): XR CXR 1 VIEW EXAM: XR Chest, 1 View CLINICAL HISTORY: Chest pain, nonspecific. TECHNIQUE: Frontal view of the chest. COMPARISON: Chest 2 views 10/05/2016 FINDINGS: Lungs: The lungs are stable in appearance without focal airspace consolidation. The pulmonary vasculature is unremarkable. Pleural space: Unremarkable. No pneumothorax. No large pleural effusion. Heart: Unremarkable. No cardiomegaly. Mediastinum: The mediastinal contours are stable and unremarkable. The trachea is midline. Bones/joints: Unremarkable. No acute fracture. IMPRESSION: No acute cardiopulmonary process or significant alteration from the prior examination. Electronically signed by: Chris Espinoza MD 12/04/24 23:25 PM Abdomen/Pelvis CT 12/04/24 22:13 EXAM: CT abd pelvis IV con only CLINICAL HISTORY: abd pain n/v/d TECHNIQUE: CT of the abdomen and pelvis was performed, with the following protocol: axial images, and reconstructed coronal and sagittal images. 119 cc opti 320 intravenous contrast was administered. One of the following dose reduction techniques was utilized for this exam: Automated exposure control, adjustment of the mA and/or kV according to patient size, and use of iterative reconstruction. COMPARISON: None. FINDINGS: Sections of lower thorax show diffuse centrilobular emphysematous changes. A 5 mm parenchymal nodule in superior segment of left lower lobe. Few focal areas of pleural nodularity seen in visualized lower lungs. Minimal subpleural basilar atelectatic changes. Abdomen: Liver: Normal in size, and density. No focal lesions, cysts, or masses were identified. Gallbladder and Biliary System: The gallbladder is normal in size and shape. No wall thickening, pericholecystic fluid, or gallstones were identified. Pancreas: Pancreatic head, body, and tail are visualized and appear normal in size and density. No pancreatic masses or calcifications were noted. Spleen: Normal in size, shape, and density. No splenic lesions or masses were identified. Kidneys and Adrenal Glands: Both kidneys are normal in size, shape, and position. No renal calculi or hydronephrosis. A 20 x 10 mm hypodense lesion along the medial limb of left adrenal gland, possibly adenoma. Right adrenal gland appears unremarkable. Pelvis: Urinary Bladder: Normal in contour and wall thickness. Prostate appears unremarkable. Peritoneal and Retroperitoneal Structures: No free fluid or abnormal fluid collections were identified within the abdomen or pelvis. Atherosclerotic aorto-iliac calcifications noted. 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 Bowel: Uncomplicated colonic diverticulosis noted. The visualized bowel loops are normal in caliber and appearance. No evidence of bowel obstruction or wall thickening. Appendix appears normal in caliber without CT evidence of acute appendicitis. Tiny 1-2 mm appendicolith suspected. Bones and Soft Tissues: Degenerative changes in lumbar spine. IMPRESSION: 1. No acute abnormality detected in CT abdomen and pelvis 2. Uncomplicated colonic diverticulosis 3. Left adrenal adenoma 4. 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 Electronically signed by Kaden Matthews 12-05-2024 01:08 AM Chest CTA 12/04/24 22:13 EXAM: CT angio chest PE protocol CLINICAL HISTORY: pe 119 cc opti 320 TECHNIQUE: Contiguous axial images were obtained from the neck base through the upper abdomen following intravenous administration of iodinated contrast material. Angiographic images were processed, 3D MIP images were acquired for interpretation. If IV contrast material had not been administered, the likelihood of detecting abnormalities relevant to the patient's condition would have been substantially decreased. Coronal and sagittal 3-D MIPs were likewise performed and indicated to increase the sensitivity of detectin diffuse clinically relevant pathology. CT scan was performed according to ALARA (as low as reasonably achievable). COMPARISON: none FINDINGS: Adequate contrast bolus without evidence of pulmonary embolism. The central airways are patent. A small 3mm subpleural nodule in left lower lobe- not significant. Soft tissue density nodule in left lower lobe measuring 7 mm in size. Emphysematous changes seen in both lungs. Rest of the lungs are clear. No pleural effusion. The heart, aorta, and pulmonary arteries are of normal size and configuration. There are no appreciable coronary artery and aortic atherosclerotic calcifications. No pericardial effusion is identified. The thyroid is unremarkable. No mediastinal, hilar, or axillary lymphadenopathy is noted. No suspicious lytic or sclerotic osseous lesions are identified. Mild degenerative changes in visualized spine. IMPRESSION: 1. No evidence of pulmonary embolism or pulmonary disease. 2. Soft tissue density nodule in left lower lobe measuring 7 mm in size. Advised follow up after 6 months with low dose CT chest. Electronically signed by Felice Wellington 12-05-2024 12:[address] 12/04/24 22:13 EXAM: CT head/brain wo con CLINICAL HISTORY: headache dizzy TECHNIQUE: Axial non-contrast CT scan of the brain was performed from the skull base to the high parietal region. One of the following dose reduction techniques were utilized for this exam: Automated exposure control, adjustment of the mA and/or kV according to patient size, use of iterative reconstruction. DLP: 2888.29 COMPARISON: None. 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 No evidence of acute infarct, hemorrhage, or mass effect. Atherosclerotic changes seen in both internal carotid and mild atherosclerotic changes seen in both vertebral and basilar arteries Ventricular System: Age appropriate mild dilatation of ventricular system seen. No evidence of hydrocephalus Subarachnoid Spaces: Mild widening of sulci are identified No evidence of subarachnoid hemorrhage or extra-axial fluid collections. Cerebellum and Brainstem: Low-attenuation area seen in both cerebellar hemisphere likely artifactual No masses, lesions seen Orbits: Normal appearance of the globes, optic nerves, and extraocular muscles. No evidence of orbital masses or abnormal signal. Sinuses: Hyperpneumatized sphenoid sinus with septum is not seen Clear paranasal sinuses. No evidence of sinusitis or mucosal thickening. Mild to moderate deviation of nasal septum towards left side Mastoid Air Cells: Clear mastoid air cells. No evidence of mastoiditis. Skull: Normal skull morphology. IMPRESSION: 1. No evidence of intracranial hemorrhage, gross territorial infarction or mass-effect 2. 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 Low-attenuation area seen in both cerebellar hemisphere, more on the left side likely artifactual. If clinically required MRI brain may be obtained 4. Age appropriate volume loss in brain parenchyma and bilateral periventricular deep white matter ischemic changes 5. 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 Carotid Doppler Study 12/05/24 02:17 US carotid doppler BI CLINICAL HISTORY: 79 years-old Male with stroke. Acute strokelike symptoms COMPARISON: None TECHNIQUE: Multiple real time sonographic images of the carotid bifurcations were obtained assessing aldrich scale, color Doppler and spectral wave form appearance FINDINGS: RIGHT CAROTID: The peak systolic velocity measured within the right ICA is 134 cm/sec within the mid ICA. The end diastolic velocity measured 31 cm/sec. The ICA to CCA ratio measured 1.5 which correlates with a stenosis of 50-69%. Moderate to severe atherosclerosis of the carotid bulb. LEFT CAROTID: The peak systolic velocity measured within the left ICA is 88 cm/sec. The end diastolic velocity measured 25 cm/sec. The ICA to CCA ratio measured 1.0 which correlates with a stenosis of 0-50%. Moderate atherosclerosis of the carotid bulb. There is normal antegrade vertebral flow bilaterally. IMPRESSION: 1. Atherosclerosis results in 50-69% stenosis of the right ICA. 2. No hemodynamically significant stenosis of the left internal carotid artery. ACT 112: Negative or not required by law. The above report was generated using voice recognition software. It may contain grammatical, syntax or spelling errors. Electronically signed by: Louie Hernández M.D. 12/05/2024 10:00 AM
--- NOTE | 2024-12-05 13:41 | Electrocardiogram Report ---
Test Reason : Blood Pressure : */* mmHG Vent. Rate : 77 BPM Atrial Rate : 77 BPM P-R Int : 138 ms QRS Dur : 80 ms QT Int : 362 ms P-R-T Axes : 38 68 73 degrees QTcB Int : 409 ms Normal sinus rhythm Normal ECG When compared with ECG of 22-Feb-2006 23:16, No significant change was found Confirmed by Chris Farrell ([id number]) on 12/05/2024 1:40:45 PM Referred By: REFERRED SELF Confirmed By: Chris Farrell
[2024-12-05] MEDS: lisinopril 20 MG TAB PO SCH (20:32)
[2024-12-05] MEDS: ATORVASTATIN 20 MG TAB PO SCH (20:32)
[2024-12-05] MEDS: ASPIRIN 81 MG ECTAB PO SCH (21:18)
[2024-12-05] MEDS: amLODIPine BESYLATE 5 MG TAB PO SCH (21:18)
[2024-12-06 07:44] LABS: Hematocrit (blood only) 37.6 % (42.0-52.0); Hemoglobin 12.9 g/dl (14.0-18.0); Mean Corpuscular Hemoglobin 28.5 pg (25.0-34.0); Mean Corpuscular Hgb Conc 34.3 g/dL (32.0-36.0); Platelet Count 210 K/uL (130-400); RDW Coefficient of Variation 14.4 % (11.5-14.5); RDW Standard Deviation 43.5 fL (36.4-46.3); Red Blood Count 4.53 M/uL (4.70-6.10); White Blood Count 6.77 K/ul (4.8-10.8)
[2024-12-06] MEDS: PANTOprazole 40 MG TAB PO SCH (07:57)
[2024-12-06 08:05] LABS: Albumin Globulin Ratio 1.9 (0.9-2); Albumin Level 3.2 gm/dl (3.4-5.0); BUN Creatinine Ratio 16.2 (10-20); Bilirubin,Total 0.5 mg/dl (0.2-1.0); Creatinine Clr Calc Pharmacy 63.4 ml/min; Globulin 1.7 gm/dl (2.5-4.0); Magnesium 2.1 mg/dl (1.7-2.4); Phosphorus 2.5 mg/dl (2.5-4.9); Potassium 3.7 mmol/L (3.5-5.1); Total Protein 4.9 gm/dl (6.0-8.3)
[2024-12-06 08:11] LABS: Basophils # (auto) 0.03 K/uL (0.00-0.20); Basophils % (auto) 0.4 %; Eosinophils # (auto) 0.03 K/uL (0.00-0.50); Eosinophils % (auto) 0.4 %; Immature Granulocytes # (auto) 0.44 K/uL (0.01-0.20); Immature Granulocytes % (auto) 6.5 %; Lymphocytes # (auto) 1.39 K/uL (1.20-3.40); Lymphocytes % (auto) 20.5 %; Monocytes # (auto) 0.79 K/uL (0.11-0.59); Monocytes % (auto) 11.7 %; Neutrophils # (auto) 4.09 K/uL (1.40-6.50); Neutrophils % (auto) 60.5 %
[2024-12-06] MEDS: predniSONE 10 MG TABLET PO ONE (09:12)
[2024-12-06] MEDS: predniSONE 20 MG TAB PO ONE (09:14)
--- NOTE | 2024-12-06 13:57 | Hospitalist Progress Note ---
Date of Service December 06, 2024 Assessment & Plan (1) SOB (shortness of breath): Plan Pt is an 79yoM with PMHx significant for hypertension, hyperlipidemia, chronic bradycardia, COPD, PVD, BPH status post surgery, essential tremors, past tobacco abuse who was admitted with an acute COPD Exacerbation. COPD Exacerbation Dyspnea likely protracted COPD exacerbation presented with SOB Chest XRAY unremarkable Chest CTA with no PE Respiratory viral panel negative for flu, covid, rsv Nebs RTC, prednisone course Hold off on additional antibiotic Rx- completed courses of Augmentin and doxycycline Pulmonology consult, appreicate recs Continue to monitor Epigastric discomfort with nausea and vomiting Uncontrolled GERD AAA likely secondary to steroid Rx doxycycline Rx possibly contributory Ct abd pelvis unremarkable but does note AAA that will need pcp followup Pepcid for GERD PPI added daily Improved Past CVA/lacunar infarcts Head CT ordered in the ED for headache Notes old infarcts TTE with Grade 1 diastolic dysfunction, no shunt carotid Dopplers noting mod-severe cortid artery disease on right, vascular consulted, appreciate recs Lipid panel normal Chronic medical problems: hypertension, slight elevated Chest pain with minimal troponin elevation hyperlipidemia on statin Rx Old lacunar infarcts on CT imaging chronic bradycardia PVD, carotid artery disease as per records BPH status post surgery Steroid-induced hyperglycemia rule out DM SPN left, history pulmonary nodules as per records Impacted cerumen, AD Possible deconditioning past tobacco abuse Diet: Dispo: PT OT eval for further recs DVT prophylaxis. Lovenox subcu Admission and Anticipated Discharge Date Admission Date: December 05, 2024 Subjective Pt was seen laying in bed Notes that he is feeling much better States that his breathing has improved and that the nausea and vomitting has also gotten better His daughter Eden was also called and updated. Review of Systems Review of Systems: All systems reviewed & are unremarkable except as noted in Subjective Physical Exam Physical Exam: General: Alert, oriented. No acute distress Skin: No noted rashes or bruises Psych: Appropriate mood and affect HEENT: NC/AT CV: RRR Resp: Breath sounds decreased bilaterally, no increased effort of breathing Abdomen: Soft, nontender Extremities: No edema in lower extremities bilaterally. Results & Data Results & Data Vital Signs (Past 12 Hours) Vital Signs Temp Pulse Pulse Resp BP BP Pulse Ox 12/06/24 13:11 67 18 93 12/06/24 11:56 36.3 C L 71 18 121/71 96 12/06/24 09:29 12/06/24 08:13 36.4 C L 66 18 125/73 94 12/06/24 07:23 56 L 12/06/24 07:16 55 L 16 96 12/06/24 03:53 36.5 C 67 18 113/65 98 O2 Del Method 12/06/24 13:11 Room Air 12/06/24 11:56 Room Air 12/06/24 09:29 Room Air 12/06/24 08:13 Room Air 12/06/24 07:23 12/06/24 07:16 Room Air 12/06/24 03:53 Room Air
--- NOTE | 2024-12-06 14:28 | Pulmonary Consultation ---
Date of Consultation December 06, 2024 Assessment & Plan (1) COPD (chronic obstructive pulmonary disease): (2) Pulmonary nodule: Plan Impression: 79-year-old male with radiographic evidence of COPD admitted with exacerbation. He was never placed on inhalers which may have resulted in his relapse. He has a pulmonary nodule of unclear significance. Recommendations: 1. COPD: Fortunately the patient is not bronchospastic currently. Recommend initiating therapy with Anoro. He can use DuoNebs as needed. Would place him on prednisone 20 mg a day for 5 days as well as azithromycin 250 mg daily. 2. Pulmonary nodule: This appears to be some pleural thickening however a follow-up CT scan in 6 months time is recommended. 3. Fortunately the patient's not hypoxemic or bronchospastic. I do not see an indication for acute hospitalization from a pulmonary standpoint at this point in time. His nausea and vomiting are unlikely to be related to COPD and additional evaluation and management per primary admitting service. Patient can be dismissed from the hospital from a pulmonary perspective. Recommend he follow-up with his outpatient provider and consider PFTs in the outpatient setting. Follow-up CT scan also recommended with his primary care provider. Pulmonary will sign off The above recommendations and plan were discussed with the patient. Questions were answered to the best my ability. He expressed understanding and is in agreement with the plan as outlined History of Present Illness Attending Physician: Chelsea Kothari MD History of Present Illness Asked by hospitalist to assist in evaluation management this patient with COPD admitted with exacerbation. History is obtained from discussion with the patient as well as review the electronic medical record. The patient is an 79-year-old male with a [id number] history of tobacco abuse who quit smoking about 2 years ago. He is followed in the [place] and so we have limited records available to review. He states he was diagnosed with COPD but was never placed on inhalers. He developed an exacerbation about 6 weeks ago and was treated with steroids and antibiotics. He improved for about 2 weeks but then the symptoms returned. He reportedly was treated again with steroids and antibiotics with improvement in his symptoms again however they returned after these medications were discontinued. He was never placed on inhalers for reasons that are not entirely clear. He has a nebulizer at home but states he does not ever use it. It is unclear if he has medication to put in the nebulizer or not. He does not use oxygen at baseline. Patient continues to have a nonproductive cough. He had nausea and vomiting of unclear etiology which prompted his admission. He is not on any inhalers currently. Allergies Allergy/AdvReac Type Severity Reaction Status Date / Time No Known Allergies Allergy Mild Verified 12/04/24 22:58 Home Medications Medication Instructions Recorded Confirmed Type atorvastatin 20 mg tablet 20 mg PO QPM 11/08/19 12/04/24 History aspirin 81 mg tablet,delayed 81 mg PO QPM 04/07/21 12/04/24 History release amlodipine 2.5 mg tablet 2.5 mg PO QPM 06/15/22 12/04/24 History doxycycline hyclate 100 mg capsule 100 mg PO BID 12/04/24 12/04/24 History lisinopril 20 mg tablet 20 mg PO QPM 12/04/24 12/04/24 History nystatin 100,000 unit/gram topical 1 applic topical BID PRN 12/04/24 12/04/24 History ointment DIRECTED triamcinolone acetonide 0.1 % 1 applic topical BID PRN 12/04/24 12/04/24 History topical ointment DIRECTED Patient History Medical History Emphysema lung Does not use inhaler. Hyperlipidemia Hypertension Prostate enlargement SOB (shortness of breath) on exertion stable Surgical History History of colonoscopy History of left cataract surgery JUN 15 2022 History of urologic surgery x2 Family History Brother Family history of diabetes mellitus Brother Family history of diabetes mellitus Brother Family history of diabetes mellitus Brother Family history of diabetes mellitus Brother Family history of diabetes mellitus Other Family history of colon cancer in mother Social History Smoking Status: Never smoker Cigarettes Per Day: 1PPD/ADVISED; Second Hand Exposure: No; Do You Dip or Chew Tobacco: No; Hx Alcohol Use: No Hx Substance Use: No Preferred Language: Nepalese Communication Ability: Effective Visual Impairment: No Limitations Hearing Ability: Normal Amphibian Crewmember Required: Voice Beliefs That Will Affect Care: None Current Living Situation: Family Current Living Situation Comment: DAUGHTER/SON IN LAW Feels Safe at Home: Yes Safety Concerns: Feels Safe At This Time Assistive Devices: CPAP Review of Systems 2 Review of Systems: Please refer to admission H&P. No additions or deletions Physical Exam 2 Constitutional: WD/WN, vitals as above Neck: trachea midline, no thyromegaly Respiratory: normal respiratory effort, lungs clear to auscultation Cardiovascular: RRR, no murmur, no edema Gastrointestinal (Abdomen): normal bowel sounds, soft, nontender, no hepatosplenomegaly Musculoskeletal: Extremities: extremities normal to inspection Skin: no rashes, warm and dry Neurologic: Nonfocal exam Lymphatic: no cervical lymphadenopathy Results & Data Results & Data Vital Signs (Past 12 Hours) Vital Signs Temp Pulse Pulse Resp BP BP Pulse Ox 12/06/24 13:11 67 18 93 12/06/24 11:56 36.3 C L 71 18 121/71 96 12/06/24 09:29 12/06/24 08:13 36.4 C L 66 18 125/73 94 12/06/24 07:23 56 L 12/06/24 07:16 55 L 16 96 12/06/24 03:53 36.5 C 67 18 113/65 98 O2 Del Method 12/06/24 13:11 Room Air 12/06/24 11:56 Room Air 12/06/24 09:29 Room Air 12/06/24 08:13 Room Air 12/06/24 07:23 12/06/24 07:16 Room Air 12/06/24 03:53 Room Air Laboratory Results 12/06/24 07:16 12/06/24 07:16 Diagnostic Findings Imaging studies were independently reviewed. CT angiogram from 12/04/2024 showed no evidence of PE. 7 mm left lower lobe nodule identified. There is report of a lung cancer screen in the patient's chart from 2019 indicating multiple pulmonary nodules measuring 5 mm. Unclear if the current nodule represents 1 of those nodules or not. PG Care Time/CCT Total # of Minutes Spent Total Time Spent with Patient: Total time spent is greater than 50% in coordination of care (as documented) at patient's floor/unit and/or counseling patient: Coding Level of Care Code 39030 INT INP/OBS CARE 2/55MIN Diagnoses COPD (chronic obstructive pulmonary disease) J44.9 Pulmonary nodule R91.1
[2024-12-06] MEDS: AZITHROMYCIN 250 MG TAB PO SCH (15:22)
[2024-12-06] MEDS: UMECLIDINIUM/VILANTEROL 62.5/25MCG 7 PUFFS/INHALER INH SCH (15:23)
[2024-12-06] MEDS: DOCUSATE SODIUM 100 MG CAP PO SCH (22:46)
[2024-12-07 06:15] LABS: Hematocrit (blood only) 37.4 % (42.0-52.0); Hemoglobin 12.9 g/dl (14.0-18.0); Mean Corpuscular Hemoglobin 28.3 pg (25.0-34.0); Mean Corpuscular Hgb Conc 34.5 g/dL (32.0-36.0); Mean Platelet Volume 10.2 fL (9.4-12.4); Platelet Count 201 K/uL (130-400); RDW Coefficient of Variation 14.6 % (11.5-14.5); RDW Standard Deviation 43.2 fL (36.4-46.3); Red Blood Count 4.56 M/uL (4.70-6.10); White Blood Count 5.77 K/ul (4.8-10.8)
[2024-12-07 06:22] LABS: Albumin Globulin Ratio 1.9 (0.9-2); Albumin Level 3.2 gm/dl (3.4-5.0); BUN Creatinine Ratio 18.5 (10-20); Bilirubin,Total 0.5 mg/dl (0.2-1.0); Calcium 7.3 mg/dl (8.6-10.3); Creatinine Clr Calc Pharmacy 68.2 ml/min; Globulin 1.7 gm/dl (2.5-4.0); Magnesium 2.1 mg/dl (1.7-2.4); Potassium 3.7 mmol/L (3.5-5.1); Total Protein 4.9 gm/dl (6.0-8.3)
[2024-12-07 06:39] LABS: Basophils # (auto) 0.03 K/uL (0.00-0.20); Basophils % (auto) 0.5 %; Eosinophils # (auto) 0.04 K/uL (0.00-0.50); Eosinophils % (auto) 0.7 %; Immature Granulocytes % (auto) 5.2 %; Lymphocytes # (auto) 1.43 K/uL (1.20-3.40); Lymphocytes % (auto) 24.8 %; Monocytes # (auto) 0.61 K/uL (0.11-0.59); Monocytes % (auto) 10.6 %; Neutrophils # (auto) 3.36 K/uL (1.40-6.50); Neutrophils % (auto) 58.2 %; RBC Morphology Unremarkable
[2024-12-07] MEDS ORDERED: POTASSIUM PHOS 3 MMOL/1 ML INFUSION IV STA (08:14)
[2024-12-07] MEDS: POT PHOSPHATE MONOBASIC W/ SOD TAB PO SCH (09:14)
[2024-12-07] MEDS: predniSONE 20 MG TAB PO SCH (09:15)
[2024-12-07] MEDS ORDERED: ALBUT/IPRATROP 3MG/0.5MG NEB 3 ML VIAL NEB PRN (12:21)
[2024-12-07 12:24] VITALS: BP 115/73; PULSE 70; RESP 16; TEMP 97.9; O2SAT 95
--- NOTE | 2024-12-07 13:25 | Discharge Summary ---
Discharge Summary Date of Service December 07, 2024 Principal Dx & Hospital Course #1 = Principal Diagnosis (1) SOB (shortness of breath): Plan Pt is an 79yoM with PMHx significant for hypertension, hyperlipidemia, chronic bradycardia, COPD, PVD, BPH status post surgery, essential tremors, past tobacco abuse who was admitted with an acute COPD Exacerbation. COPD Exacerbation Dyspnea likely protracted COPD exacerbation presented with SOB Chest XRAY unremarkable Chest CTA with no PE Respiratory viral panel negative for flu, covid, rsv Nebs RTC, prednisone course Hold off on additional antibiotic Rx- completed courses of Augmentin and doxycycline Pulmonology consulted, recommended/stated the following: "Recommendations: 1. COPD: Fortunately the patient is not bronchospastic currently. Recommend initiating therapy with Anoro. He can use DuoNebs as needed. Would place him on prednisone 20 mg a day for 5 days as well as azithromycin 250 mg daily. 2. Pulmonary nodule: This appears to be some pleural thickening however a follow-up CT scan in 6 months time is recommended. 3. Fortunately the patient's not hypoxemic or bronchospastic. I do not see an indication for acute hospitalization from a pulmonary standpoint at this point in time... Recommend he follow-up with his outpatient provider and consider PFTs in the outpatient setting. Follow-up CT scan also recommended with his primary care provider." Please ensure close followup, consider pulmonology followup as well. Epigastric discomfort with nausea and vomiting Uncontrolled GERD AAA likely secondary to steroid Rx doxycycline Rx possibly contributory Ct abd pelvis unremarkable but does note AAA that will need pcp followup Pepcid for GERD PPI added daily Improved Past CVA/lacunar infarcts Head CT ordered in the ED for headache notes old infarcts TTE with Grade 1 diastolic dysfunction, no shunt carotid Dopplers noting mod-severe cortid artery disease on right vascular followup outpt Lipid panel normal On statin PT-OT- no acute needs Chronic medical problems: hypertension, slight elevated Chest pain with minimal troponin elevation hyperlipidemia on statin Rx Old lacunar infarcts on CT imaging chronic bradycardia PVD, carotid artery disease as per records BPH status post surgery Steroid-induced hyperglycemia rule out DM SPN left, history pulmonary nodules as per records Impacted cerumen, AD Possible deconditioning past tobacco abuse Notes For Next Care Provider Will need Vascular Surgery followup for noted carotid artery disease. On statin Please repeat CT chest in 6 months Per pulm, consider PFTs Pt with noted abdominal aneurysm requiring followup, if not initiated Medication Changes From Visit Per pulmonology: Anoro inhaler Prednisone 20 mg daily to complete 5 days azithromycin 250 mg daily to complete 5 days of treatment Pantoprazole 40 mg daily Admission HPI Per Admitting Provider History obtained from patient, family, and records. Medical history significant for hypertension, hyperlipidemia, chronic bradycardia, COPD, PVD, BPH status post surgery, essential tremors, past tobacco abuse. 6 weeks ago, patient noted junky cough symptoms with some SOB. Not sure about sick contacts. Patient seen at PCPs office. Prescribed Augmentin and prednisone course for complicated bronchitis. Symptoms recurred close to completion of medications. Denies aspiration. Cough symptoms productive of clear sputum. Patient seen at PCPs office 9 days ago. Prednisone and doxycycline course prescribed for complicated bronchitis. Symptoms not fully better despite medication compliance. Achy left-sided chest pain from coughing. Headache symptoms associated with dizziness described as lightheadedness. Right ear pain going to the neck without discharge. Denies tinnitus or unusual hearing loss. Subsequent epigastric discomfort described as burning associated with nausea and vomiting. Patient weaker than usual. Patient brought to ER for evaluation. Medical History as above Surgical History : Dental surgery Family History : Breast cancer, colon cancer, dementia, heart disease Personal/Social history : Past tobacco abuse, occasional EtOH intake, retired [employer] business Admission Exam Per Admitting Provider GENERAL: Comfortable, pleasant, no respiratory distress SKIN: Normal color, warm HEENT: [place] palpebral conjunctivae, no ptosis, dry buccal mucosa; impacted cerumen right ear, TM not visualized NECK : Supple, no tenderness CHEST : Decreased breath sounds, expiratory wheezes, no tenderness HEART : Bradycardic, no obvious murmurs ABDOMEN: Some distention, nontender EXTREMITIES : No LE swelling/tenderness, no other conspicuous deformities noted NEUROLOGIC : Coherent, no facial asymmetry, intention tremors, gait and stance not assessed Discharge Exam General: Alert, oriented. No acute distress Skin: No noted rashes or bruises Psych: Appropriate mood and affect HEENT: NC/AT CV: RRR Resp: Breath sounds decreased bilaterally, no increased effort of breathing Abdomen: Soft, nontender Extremities: No edema in lower extremities bilaterally. Updated Medication List Medication Instructions Recorded Confirmed Type atorvastatin 20 mg tablet 20 mg PO QPM 11/08/19 12/04/24 History aspirin 81 mg tablet,delayed 81 mg PO QPM 04/07/21 12/04/24 History release amlodipine 2.5 mg tablet 2.5 mg PO QPM 06/15/22 12/04/24 History lisinopril 20 mg tablet 20 mg PO QPM 12/04/24 12/04/24 History nystatin 100,000 unit/gram topical 1 applic topical BID PRN 12/04/24 12/04/24 History ointment DIRECTED triamcinolone acetonide 0.1 % 1 applic topical BID PRN 12/04/24 12/04/24 History topical ointment DIRECTED azithromycin 250 mg tablet 250 mg PO QAM #2 tabs 12/07/24 Rx carbamide peroxide 6.5 % ear drops 5 drp OTR BID #15 mL 12/07/24 Rx (Ear Drops (carbamide peroxide)) pantoprazole 40 mg tablet,delayed 40 mg PO QAM #30 tabs 12/07/24 Rx release prednisone 20 mg tablet 20 mg PO DAILY #4 tabs 12/07/24 Rx umeclidinium 62.5 mcg-vilanterol 1 inh inhalation DAILY #14 ea 12/07/24 Rx 25 mcg/actuation powdr for inhalation (Anoro Ellipta) Hospital Stay Data Consultations 12/05/24 01:24 ED Decision to Admit Stat 12/06/24 10:42 Consult Pulmonology Routine 12/06/24 14:16 Consult Vascular Surgery Routine Diagnostic Imagining Performed 12/04/24 22:13 CT abd pelvis IV con only Stat CT angio chest PE protocol Stat CT head/brain wo con Stat 12/05/24 02:17 US carotid doppler BI Routine Chest X-Ray 12/04/24 20:48 Exam(s): XR CXR 1 VIEW EXAM: XR Chest, 1 View CLINICAL HISTORY: Chest pain, nonspecific. TECHNIQUE: Frontal view of the chest. COMPARISON: Chest 2 views 10/05/2016 FINDINGS: Lungs: The lungs are stable in appearance without focal airspace consolidation. The pulmonary vasculature is unremarkable. Pleural space: Unremarkable. No pneumothorax. No large pleural effusion. Heart: Unremarkable. No cardiomegaly. Mediastinum: The mediastinal contours are stable and unremarkable. The trachea is midline. Bones/joints: Unremarkable. No acute fracture. IMPRESSION: No acute cardiopulmonary process or significant alteration from the prior examination. Electronically signed by: Chris Espinoza MD 12/04/24 23:25 PM Abdomen/Pelvis CT 12/04/24 22:13 EXAM: CT abd pelvis IV con only CLINICAL HISTORY: abd pain n/v/d TECHNIQUE: CT of the abdomen and pelvis was performed, with the following protocol: axial images, and reconstructed coronal and sagittal images. 119 cc opti 320 intravenous contrast was administered. One of the following dose reduction techniques was utilized for this exam: Automated exposure control, adjustment of the mA and/or kV according to patient size, and use of iterative reconstruction. COMPARISON: None. FINDINGS: Sections of lower thorax show diffuse centrilobular emphysematous changes. A 5 mm parenchymal nodule in superior segment of left lower lobe. Few focal areas of pleural nodularity seen in visualized lower lungs. Minimal subpleural basilar atelectatic changes. Abdomen: Liver: Normal in size, and density. No focal lesions, cysts, or masses were identified. Gallbladder and Biliary System: The gallbladder is normal in size and shape. No wall thickening, pericholecystic fluid, or gallstones were identified. Pancreas: Pancreatic head, body, and tail are visualized and appear normal in size and density. No pancreatic masses or calcifications were noted. Spleen: Normal in size, shape, and density. No splenic lesions or masses were identified. Kidneys and Adrenal Glands: Both kidneys are normal in size, shape, and position. No renal calculi or hydronephrosis. A 20 x 10 mm hypodense lesion along the medial limb of left adrenal gland, possibly adenoma. Right adrenal gland appears unremarkable. Pelvis: Urinary Bladder: Normal in contour and wall thickness. Prostate appears unremarkable. Peritoneal and Retroperitoneal Structures: No free fluid or abnormal fluid collections were identified within the abdomen or pelvis. Atherosclerotic aorto-iliac calcifications noted. 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 Bowel: Uncomplicated colonic diverticulosis noted. The visualized bowel loops are normal in caliber and appearance. No evidence of bowel obstruction or wall thickening. Appendix appears normal in caliber without CT evidence of acute appendicitis. Tiny 1-2 mm appendicolith suspected. Bones and Soft Tissues: Degenerative changes in lumbar spine. IMPRESSION: 1. No acute abnormality detected in CT abdomen and pelvis 2. Uncomplicated colonic diverticulosis 3. Left adrenal adenoma 4. 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 Electronically signed by Kaden Matthews 12-05-2024 01:08 AM Chest CTA 12/04/24 22:13 EXAM: CT angio chest PE protocol CLINICAL HISTORY: pe 119 cc opti 320 TECHNIQUE: Contiguous axial images were obtained from the neck base through the upper abdomen following intravenous administration of iodinated contrast material. Angiographic images were processed, 3D MIP images were acquired for interpretation. If IV contrast material had not been administered, the likelihood of detecting abnormalities relevant to the patient's condition would have been substantially decreased. Coronal and sagittal 3-D MIPs were likewise performed and indicated to increase the sensitivity of detectin diffuse clinically relevant pathology. CT scan was performed according to ALARA (as low as reasonably achievable). COMPARISON: none FINDINGS: Adequate contrast bolus without evidence of pulmonary embolism. The central airways are patent. A small 3mm subpleural nodule in left lower lobe- not significant. Soft tissue density nodule in left lower lobe measuring 7 mm in size. Emphysematous changes seen in both lungs. Rest of the lungs are clear. No pleural effusion. The heart, aorta, and pulmonary arteries are of normal size and configuration. There are no appreciable coronary artery and aortic atherosclerotic calcifications. No pericardial effusion is identified. The thyroid is unremarkable. No mediastinal, hilar, or axillary lymphadenopathy is noted. No suspicious lytic or sclerotic osseous lesions are identified. Mild degenerative changes in visualized spine. IMPRESSION: 1. No evidence of pulmonary embolism or pulmonary disease. 2. Soft tissue density nodule in left lower lobe measuring 7 mm in size. Advised follow up after 6 months with low dose CT chest. Electronically signed by Felice Wellington 12-05-2024 12:[address] 12/04/24 22:13 EXAM: CT head/brain wo con CLINICAL HISTORY: headache dizzy TECHNIQUE: Axial non-contrast CT scan of the brain was performed from the skull base to the high parietal region. One of the following dose reduction techniques were utilized for this exam: Automated exposure control, adjustment of the mA and/or kV according to patient size, use of iterative reconstruction. DLP: 2888.29 COMPARISON: None. 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 No evidence of acute infarct, hemorrhage, or mass effect. Atherosclerotic changes seen in both internal carotid and mild atherosclerotic changes seen in both vertebral and basilar arteries Ventricular System: Age appropriate mild dilatation of ventricular system seen. No evidence of hydrocephalus Subarachnoid Spaces: Mild widening of sulci are identified No evidence of subarachnoid hemorrhage or extra-axial fluid collections. Cerebellum and Brainstem: Low-attenuation area seen in both cerebellar hemisphere likely artifactual No masses, lesions seen Orbits: Normal appearance of the globes, optic nerves, and extraocular muscles. No evidence of orbital masses or abnormal signal. Sinuses: Hyperpneumatized sphenoid sinus with septum is not seen Clear paranasal sinuses. No evidence of sinusitis or mucosal thickening. Mild to moderate deviation of nasal septum towards left side Mastoid Air Cells: Clear mastoid air cells. No evidence of mastoiditis. Skull: Normal skull morphology. IMPRESSION: 1. No evidence of intracranial hemorrhage, gross territorial infarction or mass-effect 2. 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 Low-attenuation area seen in both cerebellar hemisphere, more on the left side likely artifactual. If clinically required MRI brain may be obtained 4. Age appropriate volume loss in brain parenchyma and bilateral periventricular deep white matter ischemic changes 5. 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 Carotid Doppler Study 12/05/24 02:17 US carotid doppler BI CLINICAL HISTORY: 79 years-old Male with stroke. Acute strokelike symptoms COMPARISON: None TECHNIQUE: Multiple real time sonographic images of the carotid bifurcations were obtained assessing aldrich scale, color Doppler and spectral wave form appearance FINDINGS: RIGHT CAROTID: The peak systolic velocity measured within the right ICA is 134 cm/sec within the mid ICA. The end diastolic velocity measured 31 cm/sec. The ICA to CCA ratio measured 1.5 which correlates with a stenosis of 50-69%. Moderate to severe atherosclerosis of the carotid bulb. LEFT CAROTID: The peak systolic velocity measured within the left ICA is 88 cm/sec. The end diastolic velocity measured 25 cm/sec. The ICA to CCA ratio measured 1.0 which correlates with a stenosis of 0-50%. Moderate atherosclerosis of the carotid bulb. There is normal antegrade vertebral flow bilaterally. IMPRESSION: 1. Atherosclerosis results in 50-69% stenosis of the right ICA. 2. No hemodynamically significant stenosis of the left internal carotid artery. ACT 112: Negative or not required by law. The above report was generated using voice recognition software. It may contain grammatical, syntax or spelling errors. Electronically signed by: Louie Hernández M.D. 12/05/2024 10:00 AM Pending Results Patient Have Any Pending Studies at Discharge: No Discharge Instructions Given to Patient (Per Discharging Provider) Idris Luis Alberto were admitted and treated for a prolonged course of a COPD exacerbation. You were seen by the motor coach supervisor who recommended that you complete a 5 day course of the medications azithromycin and prednisone ad an inhaler called Leandraro. You are being discharged with 2 more doses of azithromycin and four more doses of prednisone 20mg daily. He also recommended further testing to be done as an outpatient such as pulmonary function tests and a follow-up CT scan in 6 months that your primary care provider can order for you. Please continue with the ear drops at home. Your primary care provider can refer you to ENT for further evaluation. You were also noted to have significant carotid artery disease. Follow up with a vascular surgeon is needed. Your primary care provider can help you with that re ferral as well. Again, please keep close follow up with your primary care provider after discharge. You also likely need followup with Vascular surgery, ENT and pulmonology as well. Please do not hesitate to come back to the emergency room if your symptoms worsen or return. It was a pleasure taking care of you while you were here. Total Time Total Time Spent Total Time Spent (In Minutes): 60
[2024-12-08] MEDS ORDERED: predniSONE 5 MG TAB PO ONE (08:00)
== END 2024-12-07 14:15 | disposition home or self-care (01) ==
LOC: ED 20:29 → EDINP 20:29 → SUATTDRO 12-05 02:13 → 2N 12-05 19:43